=== PATIENT | male | born 1950 | race Hispanic/Latino ===

== ENCOUNTER 2017-12-29 10:37 | Inpatient (IN) | payer MEDICARE ==
[~2017-12-29] VITALS: Ht 177.8 cm; Wt 80.8 kg
[~2017-12-29 10:37] MED LIST: AMLO10TA2 PO; ASPI-1005 PO; CARV25TA PO; FAMO20TA8 PO; FOLI1CAP2 PO; ISOS10TA2 PO; LISI-613 PO; SEVE800 PO
[2017-12-29 11:05] LABS: BASOPHILS % (AUTO) 0.5 % (0.0-5.0); EOSINOPHILS % (AUTO) 0.3 % (0.0-8.0); HEMATOCRIT 33.6 % (42-54); LYMPHOCYTES % (AUTO) 8.5 % (21.0-51.0); MEAN CORPUSCULAR HGB CONC 33.4 g/dL (32.0-36.0); MEAN CORPUSCULAR VOLUME 92.7 fL (79-99); MONOCYTES % (AUTO) 12.4 % (3.0-13.0); NEUTROPHILS % (AUTO) 78.3 % (40.0-77.0); PLATELET COUNT (AUTO) 209 K/uL (130-400); RED BLOOD CELL COUNT(AUTO) 3.62 MIL/uL (4.50-6.20); RED CELL DISTRIBUTION WIDTH 13.2 % (11.0-15.5); WHITE BLOOD COUNT (AUTO) 11.4 K/uL (4.8-10.8)
[2017-12-29 11:14] LABS: CREATININE 3.9 mg/dL (0.5-1.5); POTASSIUM 4.7 mmol/L (3.5-5.1)
[2017-12-29 11:19] LABS: ALBUMIN 2.7 g/dL (3.5-5.0); BILIRUBIN,TOTAL 0.5 mg/dL (0.2-1.0)
[2017-12-29] MEDS ORDERED: MEROPENEM 1 GM VIAL ONE (13:01)
[2017-12-29] MEDS ORDERED: INSULIN HUMULIN R 100 UNIT/ML 3ML ONE (13:02)
[2017-12-29] MEDS ORDERED: VANCOMYCIN PROTOCOL PER PHARMACY IV SCH (15:00)
[2017-12-29] MEDS ORDERED: ONDANSETRON HCL 4 MG/2 ML VIAL IVP PRN (15:00)
[2017-12-29] MEDS ORDERED: COMPOUND IV REFRIGERATED 1 EACH IVSOLN MISC PRN (15:00)
[2017-12-29] MEDS ORDERED: DEXTROSE 50%-WATER 50 ML DISP.SYRIN IV PRN (15:00)
[2017-12-29] MEDS ORDERED: GLUCAGON 1MG KIT 1 MG ML IM PRN (15:00)
[2017-12-29 15:49] VITALS: BP 177/86
[2017-12-29] MEDS ORDERED: VANCOMYCIN 1.5 GM in SODIUM CHLORIDE 0.9% 250 ML IV SCH (16:00)
[2017-12-29] MEDS: INSULIN R PO SS1 SQ SCH ×2 (16:30→21:00)
[2017-12-29] MEDS: AMLODIPINE BESYLATE 5 MG TAB PO SCH (16:41)
[2017-12-29] MEDS: MEROPENEM 1 GM VIAL IVP SCH (16:56)
[2017-12-29] MEDS ORDERED: B CO1CAP5 PO (17:21)
[2017-12-29] MEDS: FLU VACC QS2017-18 36MOS UP/PF 60 MCG/0.5 ML ML IM SCH (18:00)
[2017-12-29 20:00] VITALS: BP 168/79
[2017-12-30] VITALS: BP 170/85
[2017-12-30 03:31] LABS: HEMATOCRIT 31.8 % (42-54); MEAN CORPUSCULAR HEMOGLOBIN 30.8 pg (27.0-33.0); MEAN CORPUSCULAR HGB CONC 33.5 g/dL (32.0-36.0); PLATELET COUNT (AUTO) 213 K/uL (130-400); RED BLOOD CELL COUNT(AUTO) 3.46 MIL/uL (4.50-6.20); RED CELL DISTRIBUTION WIDTH 13.1 % (11.0-15.5); WHITE BLOOD COUNT (AUTO) 9.9 K/uL (4.8-10.8)
[2017-12-30 03:53] LABS: HEMOGLOBIN A1C 8.8 % (4.0-6.0)
[2017-12-30 03:57] LABS: ALBUMIN 2.3 g/dL (3.5-5.0); BILIRUBIN,TOTAL 0.6 mg/dL (0.2-1.0); CREATININE 5.1 mg/dL (0.5-1.5); MAGNESIUM 2.1 mg/dL (1.80-2.40); PHOSPHORUS 4.3 mg/dL (2.5-4.9); POTASSIUM 3.9 mmol/L (3.5-5.1); THYROID STIMULATING HORMONE 1.26 uIU/mL (0.36-3.74); TOTAL PROTEIN, SERUM 6.6 g/dL (6.0-8.3)
[2017-12-30 04:00] VITALS: BP 165/82
[2017-12-30] MEDS: MEROPENEM 1 GM VIAL IVP SCH ×2 (05:06→18:00)
[2017-12-30] MEDS: INSULIN R PO SS1 SQ SCH ×4 (06:28→20:22)
[2017-12-30 07:00] VITALS: BP 177/94
[2017-12-30] MEDS: AMLODIPINE BESYLATE 5 MG TAB PO SCH (10:22)
[2017-12-30 11:00] VITALS: BP 162/111
[2017-12-30] MEDS: VANCOMYCIN 1.25 GM in SODIUM CHLORIDE 0.9% 250 ML IV SCH (15:48)
[2017-12-30 16:00] VITALS: BP 147/93
[2017-12-30] MEDS ORDERED: ALBUMIN (HUMAN) 25% 100 ML IV PRN (17:30)
[2017-12-30] MEDS ORDERED: 0.9% SODIUM CHLORIDE 250 ML IV BAG IV PRN (17:30)
[2017-12-30] MEDS ORDERED: HEPARIN SODIUM 5000UNIT/ML 1ML VIAL IJ PRN (17:30)
[2017-12-30] MEDS ORDERED: SODIUM CHLORIDE 0.9% 1000ML 1,000 ML IV PRN (17:30)
[2017-12-30 20:00] VITALS: BP 143/74
[2017-12-30] MEDS: FAMOTIDINE/PF 20 MG/2 ML VIAL IV SCH (20:56)
[2017-12-31] VITALS (7 sets, daily range): BP systolic 126–156; BP diastolic 62–82
[2017-12-31 04:11] LABS: HEMATOCRIT 31.3 % (42-54); MEAN CORPUSCULAR HGB CONC 34.7 g/dL (32.0-36.0); MEAN CORPUSCULAR VOLUME 92.1 fL (79-99); PLATELET COUNT (AUTO) 222 K/uL (130-400); RED BLOOD CELL COUNT(AUTO) 3.39 MIL/uL (4.50-6.20); RED CELL DISTRIBUTION WIDTH 13.2 % (11.0-15.5); WHITE BLOOD COUNT (AUTO) 8.8 K/uL (4.8-10.8)
[2017-12-31 04:19] LABS: POTASSIUM 3.9 mmol/L (3.5-5.1)
[2017-12-31 05:58] LABS: BAND NEUTROPHILS % (MANUAL) 2 % (0-2); EOSINOPHILS % (MANUAL) 4 % (1-6); LYMPHOCYTES % (MANUAL) 14 % (22-44); MAN.DIFF COMMENT-IMPRESSION MANUAL DIFFERENTIAL; MONOCYTES % (MANUAL) 6 % (2-9); REACTIVE LYMPHOCYTES 2 % (0-0); SEGMENTED NEUTROPHILS % 72 % (40-70)
[2017-12-31] MEDS: MEROPENEM 1 GM VIAL IVP SCH ×2 (06:26→20:01)
[2017-12-31] MEDS: INSULIN R PO SS1 SQ SCH ×4 (06:27→21:00)
[2017-12-31] MEDS: FAMOTIDINE/PF 20 MG/2 ML VIAL IV SCH (10:10)
[2017-12-31] MEDS: AMLODIPINE BESYLATE 5 MG TAB PO SCH (10:10)
[2017-12-31] MEDS: ACETAMINOPHEN 325 MG TAB PO PRN (15:02)
[2017-12-31] MEDS: VANCOMYCIN 1.25 GM in SODIUM CHLORIDE 0.9% 250 ML IV SCH (15:39)
[2017-12-31] MEDS: FLU VACC QS2017-18 36MOS UP/PF 60 MCG/0.5 ML ML IM SCH (21:30)
[2018-01-01 03:00] VITALS: BP 145/66
[2018-01-01 04:06] LABS: HEMATOCRIT 29.8 % (42-54); MEAN CORPUSCULAR HEMOGLOBIN 30.9 pg (27.0-33.0); MEAN CORPUSCULAR HGB CONC 33.2 g/dL (32.0-36.0); MEAN CORPUSCULAR VOLUME 92.9 fL (79-99); PLATELET COUNT (AUTO) 221 K/uL (130-400); RED BLOOD CELL COUNT(AUTO) 3.21 MIL/uL (4.50-6.20); RED CELL DISTRIBUTION WIDTH 13.2 % (11.0-15.5); WHITE BLOOD COUNT (AUTO) 11.5 K/uL (4.8-10.8)
[2018-01-01 04:13] LABS: CREATININE 5.4 mg/dL (0.5-1.5); POTASSIUM 4.1 mmol/L (3.5-5.1)
[2018-01-01] MEDS: INSULIN R PO SS1 SQ SCH ×4 (05:47→21:08)
[2018-01-01] MEDS: MEROPENEM 1 GM VIAL IVP SCH ×2 (05:51→18:09)
[2018-01-01 07:46] VITALS: BP 143/78
[2018-01-01] MEDS: AMLODIPINE BESYLATE 5 MG TAB PO SCH (08:41)
[2018-01-01] MEDS: FAMOTIDINE/PF 20 MG/2 ML VIAL IV SCH (08:42)
[2018-01-01 11:59] VITALS: BP 149/82
[2018-01-01] MEDS: VANCOMYCIN 1.25 GM in SODIUM CHLORIDE 0.9% 250 ML IV SCH (15:32)
[2018-01-01 15:50] VITALS: BP 143/72
[2018-01-01] MEDS: FLU VACC QS2017-18 36MOS UP/PF 60 MCG/0.5 ML ML IM SCH (18:08)
[2018-01-01] MEDS: EPOETIN ALFA 3,000 UNIT/ML ML SQ SCH (18:10)
[2018-01-01 19:00] VITALS: BP 140/61
[2018-01-01 23:00] VITALS: BP 131/64
[2018-01-02 03:00] VITALS: BP 147/71
[2018-01-02] MEDS: MEROPENEM 1 GM VIAL IVP SCH ×2 (05:29→17:40)
[2018-01-02] MEDS: INSULIN R PO SS1 SQ SCH ×4 (06:18→20:23)
[2018-01-02 06:51] LABS: HEMATOCRIT 30.2 % (42-54); MEAN CORPUSCULAR HEMOGLOBIN 32.1 pg (27.0-33.0); MEAN CORPUSCULAR HGB CONC 34.5 g/dL (32.0-36.0); PLATELET COUNT (AUTO) 225 K/uL (130-400); RED BLOOD CELL COUNT(AUTO) 3.25 MIL/uL (4.50-6.20); WHITE BLOOD COUNT (AUTO) 10.5 K/uL (4.8-10.8)
[2018-01-02 06:56] LABS: CREATININE 4.3 mg/dL (0.5-1.5); POTASSIUM 3.6 mmol/L (3.5-5.1)
[2018-01-02 07:57] VITALS: BP 148/75
[2018-01-02] MEDS: FAMOTIDINE/PF 20 MG/2 ML VIAL IV SCH (08:28)
[2018-01-02] MEDS: AMLODIPINE BESYLATE 5 MG TAB PO SCH (08:28)
[2018-01-02 11:36] VITALS: BP 158/79
[2018-01-02 15:53] VITALS: BP 141/75
[2018-01-02] MEDS: ACETAMINOPHEN 325 MG TAB PO PRN (15:53)
[2018-01-02] MEDS: VANCOMYCIN 1.25 GM in SODIUM CHLORIDE 0.9% 250 ML IV SCH (15:53)
[2018-01-02 19:00] VITALS: BP 149/69
[2018-01-02 23:00] VITALS: BP 141/83
[2018-01-03 03:00] VITALS: BP 149/71
[2018-01-03] MEDS: MEROPENEM 1 GM VIAL IVP SCH ×2 (05:44→18:10)
[2018-01-03 05:58] LABS: HEMATOCRIT 30.3 % (42-54); MEAN CORPUSCULAR HEMOGLOBIN 31.4 pg (27.0-33.0); MEAN CORPUSCULAR HGB CONC 33.8 g/dL (32.0-36.0); PLATELET COUNT (AUTO) 228 K/uL (130-400); RED BLOOD CELL COUNT(AUTO) 3.26 MIL/uL (4.50-6.20); RED CELL DISTRIBUTION WIDTH 13.1 % (11.0-15.5); WHITE BLOOD COUNT (AUTO) 10.3 K/uL (4.8-10.8)
[2018-01-03 06:06] LABS: CREATININE 5.7 mg/dL (0.5-1.5); POTASSIUM 4.1 mmol/L (3.5-5.1)
[2018-01-03] MEDS: INSULIN R PO SS1 SQ SCH ×4 (06:31→21:00)
[2018-01-03 08:00] VITALS: BP 141/79
[2018-01-03] MEDS: FAMOTIDINE/PF 20 MG/2 ML VIAL IV SCH (08:36)
[2018-01-03] MEDS: AMLODIPINE BESYLATE 5 MG TAB PO SCH (08:36)
[2018-01-03 11:00] VITALS: BP 148/77
[2018-01-03 16:00] VITALS: BP 144/70
[2018-01-03] MEDS: VANCOMYCIN 1.25 GM in SODIUM CHLORIDE 0.9% 250 ML IV SCH (16:49)
[2018-01-03 19:20] VITALS: BP 149/79
[2018-01-03 23:20] VITALS: BP 142/67
[2018-01-04 03:20] VITALS: BP 139/71
[2018-01-04 04:47] LABS: HEMATOCRIT 29.8 % (42-54); MEAN CORPUSCULAR HEMOGLOBIN 31.4 pg (27.0-33.0); MEAN CORPUSCULAR HGB CONC 33.9 g/dL (32.0-36.0); MEAN CORPUSCULAR VOLUME 92.5 fL (79-99); PLATELET COUNT (AUTO) 245 K/uL (130-400); RED BLOOD CELL COUNT(AUTO) 3.22 MIL/uL (4.50-6.20); RED CELL DISTRIBUTION WIDTH 13.1 % (11.0-15.5)
[2018-01-04 04:56] LABS: CREATININE 6.8 mg/dL (0.5-1.5); POTASSIUM 4.1 mmol/L (3.5-5.1)
[2018-01-04] MEDS: INSULIN R PO SS1 SQ SCH ×4 (06:24→21:00)
[2018-01-04] MEDS: MEROPENEM 1 GM VIAL IVP SCH ×2 (06:50→18:00)
[2018-01-04 08:00] VITALS: BP 140/74
[2018-01-04] MEDS: AMLODIPINE BESYLATE 5 MG TAB PO SCH (09:00)
[2018-01-04] MEDS: FAMOTIDINE/PF 20 MG/2 ML VIAL IV SCH (09:01)
[2018-01-04 11:00] VITALS: BP 126/73
[2018-01-04] MEDS ORDERED: INSULIN HUMULIN R 100 UNIT/ML 3ML SQ ONE (12:02)
[2018-01-04] MEDS ORDERED: DiphenhydrAMINE HCL 50 MG/ML VIAL IVP PRN (13:45)
[2018-01-04] MEDS: SODIUM CHLORIDE 0.9% 1000ML 1,000 ML IV SCH ×2 (13:45→23:45)
[2018-01-04 14:18] LABS: HEMATOCRIT 29.8 % (42-54); MEAN CORPUSCULAR HEMOGLOBIN 31.7 pg (27.0-33.0); MEAN CORPUSCULAR HGB CONC 34.4 g/dL (32.0-36.0); MEAN CORPUSCULAR VOLUME 92.2 fL (79-99); PLATELET COUNT (AUTO) 247 K/uL (130-400); RED BLOOD CELL COUNT(AUTO) 3.24 MIL/uL (4.50-6.20); RED CELL DISTRIBUTION WIDTH 13.3 % (11.0-15.5); WHITE BLOOD COUNT (AUTO) 11.1 K/uL (4.8-10.8)
[2018-01-04 14:26] LABS: CREATININE 7.5 mg/dL (0.5-1.5); POTASSIUM 4.3 mmol/L (3.5-5.1)
[2018-01-04 14:29] LABS: INR 1.06 (0.85-1.15); PARTIAL THROMBOPLASTIN TIME 35.7 SEC (26.3-35.5); PROTHROMBIN TIME 11.1 SEC (9.6-11.6)
[2018-01-04 16:00] VITALS: BP 132/82
[2018-01-04] MEDS ORDERED: HEPARIN SODIUM 5000UNIT/ML 1ML VIAL IJ PRN (18:00)
[2018-01-04 19:30] VITALS: BP 134/73
[2018-01-04] MEDS: VANCOMYCIN 1.25 GM in SODIUM CHLORIDE 0.9% 250 ML IV SCH (20:35)
[2018-01-04 23:10] VITALS: BP 157/82
[2018-01-05] VITALS (11 sets, daily range): BP systolic 144–163; BP diastolic 65–86
[2018-01-05] MEDS: EPOETIN ALFA 3,000 UNIT/ML ML SQ SCH (00:49)
[2018-01-05 04:07] LABS: HEMATOCRIT 31.6 % (42-54); MEAN CORPUSCULAR HEMOGLOBIN 31.1 pg (27.0-33.0); MEAN CORPUSCULAR HGB CONC 33.7 g/dL (32.0-36.0); MEAN CORPUSCULAR VOLUME 92.2 fL (79-99); PLATELET COUNT (AUTO) 258 K/uL (130-400); RED BLOOD CELL COUNT(AUTO) 3.43 MIL/uL (4.50-6.20); RED CELL DISTRIBUTION WIDTH 13.3 % (11.0-15.5); WHITE BLOOD COUNT (AUTO) 9.5 K/uL (4.8-10.8)
[2018-01-05 04:13] LABS: INR 1.08 (0.85-1.15); PARTIAL THROMBOPLASTIN TIME 36.2 SEC (26.3-35.5); PROTHROMBIN TIME 11.3 SEC (9.6-11.6)
[2018-01-05 04:15] LABS: CREATININE 4.9 mg/dL (0.5-1.5); PHOSPHORUS 4.5 mg/dL (2.5-4.9); POTASSIUM 3.8 mmol/L (3.5-5.1)
[2018-01-05] MEDS: INSULIN R PO SS1 SQ SCH ×3 (07:30→16:30)
[2018-01-05] MEDS: MEROPENEM 1 GM VIAL IVP SCH ×2 (08:30→18:06)
[2018-01-05] MEDS: FAMOTIDINE/PF 20 MG/2 ML VIAL IV SCH (08:40)
[2018-01-05] MEDS: AMLODIPINE BESYLATE 5 MG TAB PO SCH (08:40)
[2018-01-05] MEDS: SODIUM CHLORIDE 0.9% 1000ML 1,000 ML IV SCH ×2 (09:45→14:53)
[2018-01-05] MEDS ORDERED: NITROGLYCERIN 5 MG/ML 10 ML VIAL IV ONE (11:17)
[2018-01-05] MEDS ORDERED: LIDOCAINE HCL 2% 20ML ONE (11:17)
[2018-01-05] MEDS ORDERED: HEPARIN SODIUM 1000UNIT/ML 10ML VIAL ONE ×2 (11:17→13:35)
[2018-01-05] MEDS ORDERED: ISOVUE-300 100 ML VIAL IV ONE (11:17)
[2018-01-05] MEDS ORDERED: DiphenhydrAMINE HCL 50 MG/ML VIAL ONE (11:43)
[2018-01-05] MEDS ORDERED: MIDAZOLAM HCL 1 MG/ML 2ML VIAL ONE (11:50)
[2018-01-05] MEDS ORDERED: FENTANYL CITRATE PF 50 MCG/1 ML 2ML VIAL ONE (11:51)
[2018-01-05] MEDS ORDERED: TICAGRELOR 90 MG TABLET ONE (13:53)
[2018-01-05] MEDS ORDERED: ASPIRIN 325MG EC TAB 325 MG TABLET.DR PO ONE (13:54)
[2018-01-05] MEDS ORDERED: SODIUM CHLORIDE 0.9% 1000ML 1,000 ML IV SCH (14:02)
[2018-01-05] MEDS: VANCOMYCIN 1.25 GM in SODIUM CHLORIDE 0.9% 250 ML IV SCH (15:23)
[2018-01-05] MEDS ORDERED: TICAGRELOR 90 MG TABLET PO SCH (23:30)
[2018-01-06] MEDS: INSULIN R PO SS1 SQ SCH ×5 (00:02→22:40)
[2018-01-06 03:00] VITALS: BP 149/92
[2018-01-06] MEDS: SODIUM CHLORIDE 0.9% 1000ML 1,000 ML IV SCH ×2 (05:45→07:35)
[2018-01-06] MEDS: MEROPENEM 1 GM VIAL IVP SCH ×2 (06:56→17:48)
[2018-01-06 08:00] VITALS: BP 164/79
[2018-01-06 08:00] LABS: HEMATOCRIT 29.5 % (42-54); MEAN CORPUSCULAR HEMOGLOBIN 31.2 pg (27.0-33.0); MEAN CORPUSCULAR HGB CONC 33.5 g/dL (32.0-36.0); PLATELET COUNT (AUTO) 267 K/uL (130-400); RED BLOOD CELL COUNT(AUTO) 3.18 MIL/uL (4.50-6.20); RED CELL DISTRIBUTION WIDTH 13.2 % (11.0-15.5); WHITE BLOOD COUNT (AUTO) 14.3 K/uL (4.8-10.8)
[2018-01-06 08:11] LABS: CREATININE 6.7 mg/dL (0.5-1.5); POTASSIUM 3.8 mmol/L (3.5-5.1)
[2018-01-06] MEDS: FAMOTIDINE/PF 20 MG/2 ML VIAL IV SCH (11:02)
[2018-01-06] MEDS: AMLODIPINE BESYLATE 5 MG TAB PO SCH (11:02)
[2018-01-06] MEDS: CLOPIDOGREL BISULFATE 75 MG TAB PO SCH (11:02)
[2018-01-06 12:00] VITALS: BP 146/84
[2018-01-06] MEDS: VANCOMYCIN 1.25 GM in SODIUM CHLORIDE 0.9% 250 ML IV SCH (13:11)
[2018-01-06] MEDS ORDERED: HEPARIN SODIUM 5000UNIT/ML 1ML VIAL IJ PRN (14:30)
[2018-01-06] MEDS ORDERED: VANCOMYCIN PROTOCOL PER PHARMACY IV SCH (14:45)
[2018-01-06 16:00] VITALS: BP 139/72
[2018-01-06] MEDS: SEVELAMER HCL 800 MG TABLET PO SCH (17:46)
[2018-01-06 19:20] VITALS: BP 132/60
[2018-01-06] MEDS: ISOSORBIDE DINITRATE 10 MG TABLET PO SCH (22:38)
[2018-01-06] MEDS: TRAMADOL HCL 50 MG TABLET PO PRN (22:39)
[2018-01-06 23:20] VITALS: BP 140/73
[2018-01-07] MEDS: SODIUM CHLORIDE 0.9% 1000ML 1,000 ML IV SCH (01:45)
[2018-01-07 03:40] VITALS: BP 131/72
[2018-01-07] MEDS: INSULIN R PO SS1 SQ SCH ×4 (06:49→23:44)
[2018-01-07] MEDS: MEROPENEM 1 GM VIAL IVP SCH ×2 (07:42→18:42)
[2018-01-07 08:00] VITALS: BP 137/80
[2018-01-07] MEDS: SEVELAMER HCL 800 MG TABLET PO SCH ×3 (09:26→16:24)
[2018-01-07] MEDS: FAMOTIDINE 20MG TAB 20 MG TAB PO SCH (09:26)
[2018-01-07] MEDS: LISINOPRIL 20 MG TABLET PO SCH (09:26)
[2018-01-07] MEDS: AMLODIPINE BESYLATE 5 MG TAB PO SCH (09:27)
[2018-01-07] MEDS: FAMOTIDINE/PF 20 MG/2 ML VIAL IV SCH (09:27)
[2018-01-07] MEDS: FOLIC ACID/VITAMIN B COMP W-C 1 MG CAPSULE PO SCH (09:27)
[2018-01-07] MEDS: CARVEDILOL 25 MG TABLET PO SCH (09:27)
[2018-01-07] MEDS: CLOPIDOGREL BISULFATE 75 MG TAB PO SCH (09:27)
[2018-01-07] MEDS: ISOSORBIDE DINITRATE 10 MG TABLET PO SCH ×2 (09:39→23:42)
[2018-01-07] MEDS: EPOETIN ALFA 3,000 UNIT/ML ML SQ SCH (09:40)
[2018-01-07 12:04] VITALS: BP 124/72
[2018-01-07 16:00] VITALS: BP 124/60
[2018-01-07 19:25] VITALS: BP 116/54
[2018-01-08] VITALS (7 sets, daily range): BP systolic 111–136; BP diastolic 43–68
[2018-01-08 04:26] LABS: HEMATOCRIT 24.7 % (42-54); MEAN CORPUSCULAR HEMOGLOBIN 32.6 pg (27.0-33.0); MEAN CORPUSCULAR HGB CONC 35.1 g/dL (32.0-36.0); MEAN CORPUSCULAR VOLUME 92.9 fL (79-99); PLATELET COUNT (AUTO) 272 K/uL (130-400); RED BLOOD CELL COUNT(AUTO) 2.66 MIL/uL (4.50-6.20); RED CELL DISTRIBUTION WIDTH 13.4 % (11.0-15.5); WHITE BLOOD COUNT (AUTO) 14.1 K/uL (4.8-10.8)
[2018-01-08 04:42] LABS: CREATININE 6.5 mg/dL (0.5-1.5); POTASSIUM 4.3 mmol/L (3.5-5.1)
[2018-01-08] MEDS: MEROPENEM 1 GM VIAL IVP SCH ×2 (05:21→17:33)
[2018-01-08] MEDS: INSULIN R PO SS1 SQ SCH ×4 (05:50→22:32)
[2018-01-08] MEDS: CLOPIDOGREL BISULFATE 75 MG TAB PO SCH (08:54)
[2018-01-08] MEDS: FAMOTIDINE 20MG TAB 20 MG TAB PO SCH (08:54)
[2018-01-08] MEDS: SEVELAMER HCL 800 MG TABLET PO SCH ×3 (08:54→17:31)
[2018-01-08] MEDS: CARVEDILOL 25 MG TABLET PO SCH (08:54)
[2018-01-08] MEDS: FOLIC ACID/VITAMIN B COMP W-C 1 MG CAPSULE PO SCH (08:54)
[2018-01-08] MEDS: AMLODIPINE BESYLATE 5 MG TAB PO SCH (08:54)
[2018-01-08] MEDS: LISINOPRIL 20 MG TABLET PO SCH (08:55)
[2018-01-08] MEDS: ISOSORBIDE DINITRATE 10 MG TABLET PO SCH ×2 (09:16→22:32)
[2018-01-08] MEDS: EPOETIN ALFA 3,000 UNIT/ML ML SQ SCH (13:43)
[2018-01-09 03:57] VITALS: BP 122/56
[2018-01-09] MEDS: INSULIN R PO SS1 SQ SCH ×4 (06:07→23:02)
[2018-01-09] MEDS: MEROPENEM 1 GM VIAL IVP SCH ×2 (06:48→18:10)
[2018-01-09] MEDS: VANCOMYCIN 1.25 GM in SODIUM CHLORIDE 0.9% 250 ML IV NR (07:58)
[2018-01-09 08:00] VITALS: BP 157/57
[2018-01-09] MEDS: FOLIC ACID/VITAMIN B COMP W-C 1 MG CAPSULE PO SCH (09:03)
[2018-01-09] MEDS: CARVEDILOL 25 MG TABLET PO SCH (09:03)
[2018-01-09] MEDS: SEVELAMER HCL 800 MG TABLET PO SCH ×3 (09:03→16:53)
[2018-01-09] MEDS: CLOPIDOGREL BISULFATE 75 MG TAB PO SCH (09:03)
[2018-01-09] MEDS: LISINOPRIL 20 MG TABLET PO SCH (09:03)
[2018-01-09] MEDS: AMLODIPINE BESYLATE 5 MG TAB PO SCH (09:04)
[2018-01-09] MEDS: FAMOTIDINE 20MG TAB 20 MG TAB PO SCH (09:04)
[2018-01-09] MEDS: ISOSORBIDE DINITRATE 10 MG TABLET PO SCH ×2 (09:10→23:01)
[2018-01-09 11:00] VITALS: BP 113/53
[2018-01-09 15:59] VITALS: BP 119/63
[2018-01-09 19:20] VITALS: BP 123/56
[2018-01-09 23:15] VITALS: BP 122/66
[2018-01-09 23:25] LABS: HEMATOCRIT 27.7 % (42-54); MEAN CORPUSCULAR HEMOGLOBIN 30.7 pg (27.0-33.0); MEAN CORPUSCULAR HGB CONC 33.5 g/dL (32.0-36.0); MEAN CORPUSCULAR VOLUME 91.6 fL (79-99); NUCLEATED RED BLOOD CELLS 0.1 % (0.0-0.19); PLATELET COUNT (AUTO) 330 K/uL (130-400); RED BLOOD CELL COUNT(AUTO) 3.03 MIL/uL (4.50-6.20); RED CELL DISTRIBUTION WIDTH 13.8 % (11.0-15.5); WHITE BLOOD COUNT (AUTO) 13.8 K/uL (4.8-10.8)
[2018-01-09 23:32] LABS: CARBON DIOXIDE 27 mmol/L (21-32); CHLORIDE 97 mmol/L (101-111); CREATININE 5.9 mg/dL (0.5-1.5); GLOMERULAR FILTR. RATE CALC 10 mL/min (>60); GLUCOSE,RANDOM 222 mg/dL (70-105); POTASSIUM 4.3 mmol/L (3.5-5.1); SODIUM SERUM 137 mmol/L (136-145); UREA NITROGEN, BLOOD 51 mg/dL (7-18)
[2018-01-09 23:47] LABS: CREATINE KINASE MB 1.2 ng/mL (0.5-3.6); CREATINE KINASE, TOTAL 28 U/L (21-232); MYOGLOBIN 210 ng/mL (10-92); TROPONIN I < 0.04 ng/mL (0.00-0.06)
[2018-01-10 03:30] VITALS: BP 115/50
[2018-01-10 06:07] LABS: CREATININE 6.3 mg/dL (0.5-1.5); PHOSPHORUS 4.3 mg/dL (2.5-4.9); POTASSIUM 4.3 mmol/L (3.5-5.1)
[2018-01-10 06:09] LABS: HEMATOCRIT 26.4 % (42-54); MEAN CORPUSCULAR HEMOGLOBIN 32.2 pg (27.0-33.0); MEAN CORPUSCULAR HGB CONC 34.7 g/dL (32.0-36.0); MEAN CORPUSCULAR VOLUME 92.8 fL (79-99); PLATELET COUNT (AUTO) 331 K/uL (130-400); RED BLOOD CELL COUNT(AUTO) 2.85 MIL/uL (4.50-6.20); RED CELL DISTRIBUTION WIDTH 13.8 % (11.0-15.5); WHITE BLOOD COUNT (AUTO) 12.6 K/uL (4.8-10.8)
[2018-01-10 06:19] LABS: BASOPHILS % (MANUAL) 1 % (0-2); EOSINOPHILS % (MANUAL) 2 % (1-6); LYMPHOCYTES % (MANUAL) 20 % (22-44); MAN.DIFF COMMENT-IMPRESSION MANUAL DIFFERENTIAL; MONOCYTES % (MANUAL) 13 % (2-9); SEGMENTED NEUTROPHILS % 64 % (40-70)
[2018-01-10 06:20] LABS: PLATELET MORPHOLOGY COMMENT ADEQUATE
[2018-01-10] MEDS: INSULIN R PO SS1 SQ SCH ×4 (06:22→23:41)
[2018-01-10 07:58] VITALS: BP 130/58
[2018-01-10] MEDS: SEVELAMER HCL 800 MG TABLET PO SCH ×3 (08:00→18:32)
[2018-01-10] MEDS: MEROPENEM 1 GM VIAL IVP SCH ×2 (08:38→18:32)
[2018-01-10] MEDS: FOLIC ACID/VITAMIN B COMP W-C 1 MG CAPSULE PO SCH (12:13)
[2018-01-10] MEDS: FAMOTIDINE 20MG TAB 20 MG TAB PO SCH (12:14)
[2018-01-10] MEDS: LISINOPRIL 20 MG TABLET PO SCH (12:14)
[2018-01-10] MEDS: CARVEDILOL 25 MG TABLET PO SCH (12:15)
[2018-01-10] MEDS: ISOSORBIDE DINITRATE 10 MG TABLET PO SCH ×2 (12:15→23:40)
[2018-01-10 13:56] VITALS: BP 121/58
[2018-01-10] MEDS: VANCOMYCIN 1.25 GM in SODIUM CHLORIDE 0.9% 250 ML IV NR (15:49)
[2018-01-10 16:00] VITALS: BP 120/58
[2018-01-10] MEDS: AMLODIPINE BESYLATE 5 MG TAB PO SCH (18:32)
[2018-01-10 20:00] VITALS: BP 127/57
[2018-01-11 04:00] VITALS: BP 113/52
[2018-01-11] MEDS: INSULIN R PO SS1 SQ SCH ×4 (06:14→22:58)
[2018-01-11] MEDS: MEROPENEM 1 GM VIAL IVP SCH ×2 (07:10→17:23)
[2018-01-11 08:00] VITALS: BP 103/40
[2018-01-11] MEDS: SEVELAMER HCL 800 MG TABLET PO SCH ×3 (08:00→17:22)
[2018-01-11] MEDS: ISOSORBIDE DINITRATE 10 MG TABLET PO SCH ×2 (09:00→22:56)
[2018-01-11] MEDS: CARVEDILOL 25 MG TABLET PO SCH (09:00)
[2018-01-11] MEDS: LISINOPRIL 20 MG TABLET PO SCH (09:00)
[2018-01-11] MEDS: AMLODIPINE BESYLATE 5 MG TAB PO SCH (09:00)
[2018-01-11] MEDS: FAMOTIDINE 20MG TAB 20 MG TAB PO SCH (11:32)
[2018-01-11] MEDS: FOLIC ACID/VITAMIN B COMP W-C 1 MG CAPSULE PO SCH (11:32)
[2018-01-11 11:53] VITALS: BP 109/40
[2018-01-11 15:57] VITALS: BP 141/67
[2018-01-11 23:39] VITALS: BP 149/58
[2018-01-12 03:55] VITALS: BP 131/55
[2018-01-12] MEDS: INSULIN R PO SS1 SQ SCH ×4 (06:27→22:33)
[2018-01-12] MEDS: MEROPENEM 1 GM VIAL IVP SCH (06:46)
[2018-01-12 07:00] VITALS: BP 152/68
[2018-01-12] MEDS: CARVEDILOL 25 MG TABLET PO SCH (09:03)
[2018-01-12] MEDS: SEVELAMER HCL 800 MG TABLET PO SCH ×3 (09:03→18:12)
[2018-01-12] MEDS: FAMOTIDINE 20MG TAB 20 MG TAB PO SCH (09:03)
[2018-01-12] MEDS: LISINOPRIL 20 MG TABLET PO SCH (09:03)
[2018-01-12] MEDS: FOLIC ACID/VITAMIN B COMP W-C 1 MG CAPSULE PO SCH (09:04)
[2018-01-12] MEDS: AMLODIPINE BESYLATE 5 MG TAB PO SCH (09:04)
[2018-01-12] MEDS: ISOSORBIDE DINITRATE 10 MG TABLET PO SCH ×2 (09:04→22:31)
[2018-01-12 11:26] VITALS: BP 130/58
[2018-01-12 16:00] VITALS: BP 111/45
[2018-01-12 19:00] VITALS: BP 116/48
[2018-01-13] VITALS (7 sets, daily range): BP systolic 124–146; BP diastolic 54–72
[2018-01-13] MEDS: INSULIN R PO SS1 SQ SCH ×4 (06:08→20:25)
[2018-01-13] MEDS: SEVELAMER HCL 800 MG TABLET PO SCH ×3 (08:00→20:22)
[2018-01-13] MEDS: FOLIC ACID/VITAMIN B COMP W-C 1 MG CAPSULE PO SCH (11:46)
[2018-01-13] MEDS: FAMOTIDINE 20MG TAB 20 MG TAB PO SCH (11:47)
[2018-01-13] MEDS: CARVEDILOL 25 MG TABLET PO SCH (11:47)
[2018-01-13] MEDS: AMLODIPINE BESYLATE 5 MG TAB PO SCH (11:47)
[2018-01-13] MEDS: ISOSORBIDE DINITRATE 10 MG TABLET PO SCH ×2 (11:47→20:22)
[2018-01-13] MEDS: LISINOPRIL 20 MG TABLET PO SCH (11:48)
[2018-01-14] VITALS (33 sets, daily range): BP systolic 109–163; BP diastolic 43–68
[2018-01-14 06:52] LABS: BASOPHILS % (AUTO) 0.9 % (0.0-5.0); EOSINOPHILS % (AUTO) 3.6 % (0.0-8.0); HEMATOCRIT 27.5 % (42-54); LYMPHOCYTES % (AUTO) 11.1 % (21.0-51.0); MEAN CORPUSCULAR HEMOGLOBIN 30.7 pg (27.0-33.0); MONOCYTES % (AUTO) 13.5 % (3.0-13.0); NEUTROPHILS % (AUTO) 70.9 % (40.0-77.0); PLATELET COUNT (AUTO) 324 K/uL (130-400); RED BLOOD CELL COUNT(AUTO) 2.96 MIL/uL (4.50-6.20); RED CELL DISTRIBUTION WIDTH 13.7 % (11.0-15.5); WHITE BLOOD COUNT (AUTO) 11.3 K/uL (4.8-10.8)
[2018-01-14 07:01] LABS: POTASSIUM 4.9 mmol/L (3.5-5.1)
[2018-01-14] MEDS: INSULIN R PO SS1 SQ SCH ×4 (07:30→21:00)
[2018-01-14] MEDS: SEVELAMER HCL 800 MG TABLET PO SCH ×3 (08:00→17:00)
[2018-01-14] MEDS: FOLIC ACID/VITAMIN B COMP W-C 1 MG CAPSULE PO SCH (08:17)
[2018-01-14] MEDS: FAMOTIDINE 20MG TAB 20 MG TAB PO SCH (08:20)
[2018-01-14] MEDS: CARVEDILOL 25 MG TABLET PO SCH (08:21)
[2018-01-14] MEDS: AMLODIPINE BESYLATE 5 MG TAB PO SCH (08:32)
[2018-01-14] MEDS: ISOSORBIDE DINITRATE 10 MG TABLET PO SCH ×2 (08:33→21:05)
[2018-01-14] MEDS: LISINOPRIL 20 MG TABLET PO SCH (09:00)
[2018-01-14] MEDS ORDERED: FENTANYL CITRATE PF 50 MCG/1 ML 2ML VIAL ONE ×2 (12:24→13:54)
[2018-01-14] MEDS ORDERED: PROPOFOL 10 MG/ML 20ML VIAL IV ONE (12:24)
[2018-01-14] MEDS ORDERED: ROCURONIUM BROMIDE 10MG/1ML 5ML VL ONE (12:25)
[2018-01-14] MEDS ORDERED: LIDOCAINE PF 2% 5ML ABBOJECT ONE (12:25)
[2018-01-14] MEDS ORDERED: ESMOLOL HCL 10 MG/ML 10 ML VIAL ONE (13:46)
[2018-01-14] MEDS ORDERED: GLYCOPYRROLATE 0.2 MG/ML 5 ML VIAL ONE (13:47)
[2018-01-14] MEDS: SODIUM CHLORIDE 0.9% 1000ML 1,000 ML IV SCH (13:58)
[2018-01-14] MEDS ORDERED: MORPHINE SULFATE 4 MG/1ML SYG IV PRN (14:00)
[2018-01-14] MEDS ORDERED: MORPHINE SULFATE 2 MG/ML 1ML SYG IV PRN (14:00)
[2018-01-14] MEDS ORDERED: MEPERIDINE-PF 25 MG/ML SYG ONE (14:28)
[2018-01-15 03:00] VITALS: BP 131/50
[2018-01-15 05:59] LABS: HEMATOCRIT 26.4 % (42-54); MEAN CORPUSCULAR HEMOGLOBIN 31.2 pg (27.0-33.0); MEAN CORPUSCULAR HGB CONC 33.3 g/dL (32.0-36.0); MEAN CORPUSCULAR VOLUME 93.7 fL (79-99); PLATELET COUNT (AUTO) 295 K/uL (130-400); RED BLOOD CELL COUNT(AUTO) 2.82 MIL/uL (4.50-6.20); RED CELL DISTRIBUTION WIDTH 13.8 % (11.0-15.5); WHITE BLOOD COUNT (AUTO) 10.4 K/uL (4.8-10.8)
[2018-01-15 06:21] LABS: CREATININE 6.1 mg/dL (0.5-1.5); PHOSPHORUS 5.2 mg/dL (2.5-4.9); POTASSIUM 5.9 mmol/L (3.5-5.1)
[2018-01-15 06:33] LABS: BASOPHILS % (MANUAL) 2 % (0-2); EOSINOPHILS % (MANUAL) 4 % (1-6); LYMPHOCYTES % (MANUAL) 7 % (22-44); MAN.DIFF COMMENT-IMPRESSION MANUAL DIFFERENTIAL; MONOCYTES % (MANUAL) 10 % (2-9); REACTIVE LYMPHOCYTES 1 % (0-0); SEGMENTED NEUTROPHILS % 76 % (40-70)
[2018-01-15 06:34] LABS: PLATELET MORPHOLOGY COMMENT ADEQUATE
[2018-01-15] MEDS: INSULIN R PO SS1 SQ SCH ×4 (07:30→20:44)
[2018-01-15 08:00] VITALS: BP 151/79
[2018-01-15] MEDS: ISOSORBIDE DINITRATE 10 MG TABLET PO SCH ×2 (09:41→20:44)
[2018-01-15] MEDS: CARVEDILOL 25 MG TABLET PO SCH (09:42)
[2018-01-15] MEDS: SEVELAMER HCL 800 MG TABLET PO SCH ×3 (09:42→17:03)
[2018-01-15] MEDS: FAMOTIDINE 20MG TAB 20 MG TAB PO SCH (09:42)
[2018-01-15] MEDS: FOLIC ACID/VITAMIN B COMP W-C 1 MG CAPSULE PO SCH (09:42)
[2018-01-15] MEDS: AMLODIPINE BESYLATE 5 MG TAB PO SCH (09:42)
[2018-01-15] MEDS: LISINOPRIL 20 MG TABLET PO SCH (09:43)
[2018-01-15] MEDS: SODIUM CHLORIDE 0.9% 1000ML 1,000 ML IV SCH (09:58)
[2018-01-15 12:00] VITALS: BP 148/73
[2018-01-15] MEDS: TRAMADOL HCL 50 MG TABLET PO PRN (14:08)
[2018-01-15] MEDS: VANCOMYCIN 1.25 GM in SODIUM CHLORIDE 0.9% 250 ML IV NR (15:24)
[2018-01-15 16:00] VITALS: BP 98/56
[2018-01-15 19:00] VITALS: BP 119/59
[2018-01-15 23:00] VITALS: BP 119/55
[2018-01-16 03:00] VITALS: BP 115/42
[2018-01-16] MEDS: SODIUM CHLORIDE 0.9% 1000ML 1,000 ML IV SCH (05:58)
[2018-01-16] MEDS: INSULIN R PO SS1 SQ SCH ×4 (06:37→21:38)
[2018-01-16 08:00] VITALS: BP 121/56
[2018-01-16 11:00] VITALS: BP 126/47
[2018-01-16] MEDS: AMLODIPINE BESYLATE 5 MG TAB PO SCH (11:53)
[2018-01-16] MEDS: SEVELAMER HCL 800 MG TABLET PO SCH ×3 (11:53→17:05)
[2018-01-16] MEDS: ISOSORBIDE DINITRATE 10 MG TABLET PO SCH ×2 (11:53→21:34)
[2018-01-16] MEDS: CARVEDILOL 25 MG TABLET PO SCH (11:54)
[2018-01-16] MEDS: FOLIC ACID/VITAMIN B COMP W-C 1 MG CAPSULE PO SCH (11:54)
[2018-01-16] MEDS: FAMOTIDINE 20MG TAB 20 MG TAB PO SCH (11:58)
[2018-01-16] MEDS: LISINOPRIL 20 MG TABLET PO SCH (11:58)
[2018-01-16] MEDS: VANCOMYCIN 1.25 GM in SODIUM CHLORIDE 0.9% 250 ML IV NR (15:33)
[2018-01-16 16:00] VITALS: BP 123/53
[2018-01-16] MEDS ORDERED: ATROPINE SULFATE 0.1 MG/ML 10 ML SYG IVP SCH (18:15)
[2018-01-16 19:00] VITALS: BP 116/51
[2018-01-16 23:00] VITALS: BP 118/52
[2018-01-17 03:00] VITALS: BP 127/51
[2018-01-17] MEDS: INSULIN R PO SS1 SQ SCH ×4 (06:03→21:00)
[2018-01-17 06:10] LABS: HEMATOCRIT 22.5 % (42-54); MEAN CORPUSCULAR HEMOGLOBIN 31.4 pg (27.0-33.0); MEAN CORPUSCULAR HGB CONC 34.2 g/dL (32.0-36.0); MEAN CORPUSCULAR VOLUME 91.6 fL (79-99); PLATELET COUNT (AUTO) 251 K/uL (130-400); RED BLOOD CELL COUNT(AUTO) 2.45 MIL/uL (4.50-6.20); RED CELL DISTRIBUTION WIDTH 13.6 % (11.0-15.5); WHITE BLOOD COUNT (AUTO) 13.2 K/uL (4.8-10.8)
[2018-01-17 06:22] LABS: INR 1.11 (0.85-1.15); PARTIAL THROMBOPLASTIN TIME 38.3 SEC (26.3-35.5); PROTHROMBIN TIME 11.6 SEC (9.6-11.6)
[2018-01-17 06:33] LABS: BILIRUBIN,DIRECT 0.2 mg/dL (0.0-0.3); BILIRUBIN,TOTAL 0.5 mg/dL (0.2-1.0); CREATININE 6.9 mg/dL (0.5-1.5); POTASSIUM 4.4 mmol/L (3.5-5.1); THYROID STIMULATING HORMONE 2.38 uIU/mL (0.36-3.74); TOTAL PROTEIN, SERUM 6.5 g/dL (6.0-8.3)
[2018-01-17 08:00] VITALS: BP 116/55
[2018-01-17] MEDS: CLOPIDOGREL BISULFATE 75 MG TAB PO SCH (08:53)
[2018-01-17] MEDS: FAMOTIDINE 20MG TAB 20 MG TAB PO SCH (08:53)
[2018-01-17] MEDS: FOLIC ACID/VITAMIN B COMP W-C 1 MG CAPSULE PO SCH (08:53)
[2018-01-17] MEDS: SEVELAMER HCL 800 MG TABLET PO SCH ×3 (08:53→16:33)
[2018-01-17] MEDS: ISOSORBIDE DINITRATE 10 MG TABLET PO SCH ×2 (08:53→21:00)
[2018-01-17] MEDS: AMLODIPINE BESYLATE 5 MG TAB PO SCH (08:54)
[2018-01-17] MEDS: LISINOPRIL 20 MG TABLET PO SCH (08:54)
[2018-01-17] MEDS ORDERED: CLOPIDOGREL BISULFATE 75 MG TAB PO SCH ×2 (09:00)
[2018-01-17 11:00] VITALS: BP 124/53
[2018-01-17 16:00] VITALS: BP 131/56
[2018-01-17] MEDS: VANCOMYCIN 1.25 GM in SODIUM CHLORIDE 0.9% 250 ML IV NR (16:31)
[2018-01-17 19:40] VITALS: BP 116/56
[2018-01-17 23:20] VITALS: BP 119/52
[2018-01-18 03:25] VITALS: BP 131/52
[2018-01-18 04:40] LABS: HEMATOCRIT 23.7 % (42-54); MEAN CORPUSCULAR HEMOGLOBIN 30.8 pg (27.0-33.0); MEAN CORPUSCULAR VOLUME 90.9 fL (79-99); PLATELET COUNT (AUTO) 272 K/uL (130-400); RED BLOOD CELL COUNT(AUTO) 2.61 MIL/uL (4.50-6.20); RED CELL DISTRIBUTION WIDTH 13.6 % (11.0-15.5); WHITE BLOOD COUNT (AUTO) 13.3 K/uL (4.8-10.8)
[2018-01-18 04:54] LABS: BAND NEUTROPHILS % (MANUAL) 5 % (0-2); BASOPHILS % (MANUAL) 2 % (0-2); LYMPHOCYTES % (MANUAL) 18 % (22-44); MAN.DIFF COMMENT-IMPRESSION MANUAL DIFFERENTIAL; MONOCYTES % (MANUAL) 1 % (2-9); PHOSPHORUS 6.7 mg/dL (2.5-4.9); PLATELET MORPHOLOGY COMMENT ADEQUATE; POTASSIUM 4.6 mmol/L (3.5-5.1); SEGMENTED NEUTROPHILS % 74 % (40-70)
[2018-01-18 05:11] LABS: CREATININE 8.2 mg/dL (0.5-1.5)
[2018-01-18] MEDS: INSULIN R PO SS1 SQ SCH ×4 (06:09→20:38)
[2018-01-18 08:00] VITALS: BP 133/57
[2018-01-18] MEDS: SEVELAMER HCL 800 MG TABLET PO SCH ×3 (08:00→17:22)
[2018-01-18] MEDS: ISOSORBIDE DINITRATE 10 MG TABLET PO SCH ×2 (09:00→20:40)
[2018-01-18] MEDS: AMLODIPINE BESYLATE 5 MG TAB PO SCH ×2 (09:00→17:22)
[2018-01-18] MEDS: LISINOPRIL 20 MG TABLET PO SCH (09:00)
[2018-01-18] MEDS: CARVEDILOL 12.5 MG TABLET PO SCH ×2 (10:00→17:22)
[2018-01-18 11:00] VITALS: BP 127/49
[2018-01-18] MEDS: TRAMADOL HCL 50 MG TABLET PO PRN (12:35)
[2018-01-18] MEDS: CLOPIDOGREL BISULFATE 75 MG TAB PO SCH (12:38)
[2018-01-18] MEDS: FAMOTIDINE 20MG TAB 20 MG TAB PO SCH (12:38)
[2018-01-18] MEDS: FOLIC ACID/VITAMIN B COMP W-C 1 MG CAPSULE PO SCH (12:38)
[2018-01-18 16:00] VITALS: BP 159/70
[2018-01-18] MEDS: VANCOMYCIN 1.25 GM in SODIUM CHLORIDE 0.9% 250 ML IV NR (17:22)
[2018-01-18 19:20] VITALS: BP 145/62
[2018-01-18 23:07] VITALS: BP 139/64
[2018-01-19 03:10] VITALS: BP 123/49
[2018-01-19 04:01] LABS: HEMATOCRIT 24.8 % (42-54); MEAN CORPUSCULAR HEMOGLOBIN 31.5 pg (27.0-33.0); MEAN CORPUSCULAR HGB CONC 35.1 g/dL (32.0-36.0); MEAN CORPUSCULAR VOLUME 89.5 fL (79-99); PLATELET COUNT (AUTO) 285 K/uL (130-400); RED BLOOD CELL COUNT(AUTO) 2.77 MIL/uL (4.50-6.20); RED CELL DISTRIBUTION WIDTH 13.5 % (11.0-15.5); WHITE BLOOD COUNT (AUTO) 9.9 K/uL (4.8-10.8)
[2018-01-19 04:14] LABS: CREATININE 5.1 mg/dL (0.5-1.5); POTASSIUM 4.1 mmol/L (3.5-5.1)
[2018-01-19] MEDS: INSULIN R PO SS1 SQ SCH ×3 (05:53→16:38)
[2018-01-19 08:00] VITALS: BP 132/66
[2018-01-19] MEDS: CLOPIDOGREL BISULFATE 75 MG TAB PO SCH (09:34)
[2018-01-19] MEDS: AMLODIPINE BESYLATE 5 MG TAB PO SCH (09:34)
[2018-01-19] MEDS: ISOSORBIDE DINITRATE 10 MG TABLET PO SCH (09:34)
[2018-01-19] MEDS: FAMOTIDINE 20MG TAB 20 MG TAB PO SCH (09:34)
[2018-01-19] MEDS: LISINOPRIL 20 MG TABLET PO SCH (09:34)
[2018-01-19] MEDS: FOLIC ACID/VITAMIN B COMP W-C 1 MG CAPSULE PO SCH (09:34)
[2018-01-19] MEDS: SEVELAMER HCL 800 MG TABLET PO SCH ×3 (09:34→16:36)
[2018-01-19] MEDS: CARVEDILOL 12.5 MG TABLET PO SCH (09:38)
[2018-01-19] MEDS: VANCOMYCIN 1.25 GM in SODIUM CHLORIDE 0.9% 250 ML IV NR (09:39)
[2018-01-19 11:00] VITALS: BP 127/64
[2018-01-19 16:00] VITALS: BP 158/76
== END 2018-01-19 19:51 | DRG 853 ==
LOC: EDH 10:37 → EDHIP 11:25 → 3BH 15:32
PROVIDERS: ADMIT Internal Medicine Nephrology; ATTEND Internal Medicine Nephrology
PROC: 5A1D70Z Performance of Urinary Filtration, Intermittent, Less than 6 Hours Per Day (ICD-10-PCS; 2017-12-30)
PROC: 3E0234Z Introduction of Serum, Toxoid and Vaccine into Muscle, Percutaneous Approach (ICD-10-PCS; 2017-12-31)
PROC: 5A1D70Z Performance of Urinary Filtration, Intermittent, Less than 6 Hours Per Day (ICD-10-PCS; 2018-01-01)
PROC: 5A1D70Z Performance of Urinary Filtration, Intermittent, Less than 6 Hours Per Day (ICD-10-PCS; 2018-01-04)
PROC: B41D1ZZ Fluoroscopy of Aorta and Bilateral Lower Extremity Arteries using Low Osmolar Contrast (ICD-10-PCS; principal; 2018-01-05)
PROC: 04CN3ZZ Extirpation of Matter from Left Popliteal Artery, Percutaneous Approach (ICD-10-PCS; 2018-01-05)
PROC: B41G1ZZ Fluoroscopy of Left Lower Extremity Arteries using Low Osmolar Contrast (ICD-10-PCS; 2018-01-05)
PROC: 047L3DZ Dilation of Left Femoral Artery with Intraluminal Device, Percutaneous Approach (ICD-10-PCS; 2018-01-05)
PROC: 04CU3ZZ Extirpation of Matter from Left Peroneal Artery, Percutaneous Approach (ICD-10-PCS; 2018-01-05)
PROC: 04CS3ZZ Extirpation of Matter from Left Posterior Tibial Artery, Percutaneous Approach (ICD-10-PCS; 2018-01-05)
PROC: 5A1D70Z Performance of Urinary Filtration, Intermittent, Less than 6 Hours Per Day (ICD-10-PCS; 2018-01-06)
PROC: 5A1D70Z Performance of Urinary Filtration, Intermittent, Less than 6 Hours Per Day (ICD-10-PCS; 2018-01-08)
PROC: 5A1D70Z Performance of Urinary Filtration, Intermittent, Less than 6 Hours Per Day (ICD-10-PCS; 2018-01-11)
PROC: 5A1D70Z Performance of Urinary Filtration, Intermittent, Less than 6 Hours Per Day (ICD-10-PCS; 2018-01-13)
PROC: 0Y6J0Z3 Detachment at Left Lower Leg, Low, Open Approach (ICD-10-PCS; 2018-01-14)
PROC: 5A1D70Z Performance of Urinary Filtration, Intermittent, Less than 6 Hours Per Day (ICD-10-PCS; 2018-01-15)
PROC: 5A1D70Z Performance of Urinary Filtration, Intermittent, Less than 6 Hours Per Day (ICD-10-PCS; 2018-01-17)
PROC: 5A1D70Z Performance of Urinary Filtration, Intermittent, Less than 6 Hours Per Day (ICD-10-PCS; 2018-01-18)
DX: A41.9 Sepsis, unspecified organism (principal); N18.6 End stage renal disease; E11.52 Type 2 diabetes mellitus with diabetic peripheral angiopathy with gangrene; E11.21 Type 2 diabetes mellitus with diabetic nephropathy; E11.22 Type 2 diabetes mellitus with diabetic chronic kidney disease; I44.1 Atrioventricular block, second degree; M86.8X8 Other osteomyelitis, other site; L97.429 Non-pressure chronic ulcer of left heel and midfoot with unspecified severity; M86.8X7 Other osteomyelitis, ankle and foot; I12.0 Hypertensive chronic kidney disease with stage 5 chronic kidney disease or end stage renal disease; E11.621 Type 2 diabetes mellitus with foot ulcer; E11.69 Type 2 diabetes mellitus with other specified complication; D64.9 Anemia, unspecified; E78.5 Hyperlipidemia, unspecified; L97.519 Non-pressure chronic ulcer of other part of right foot with unspecified severity; Z83.3 Family history of diabetes mellitus; Z99.2 Dependence on renal dialysis; Z23 Encounter for immunization
CPT/HCPCS: 36415; 37227; 37228; 73630; 73718; 75710; 75774; 80048; 80053; 80076; 80202; 82550; 82553; 82947; 82948; 83036; 83605; 83735; 83874; 84100; 84443; 84484; 85025; 85027; 85347; 85610; 85730; 87040; 87205; 87324; 88307; 90935; 93005; 93306; 93925; 97039; 99152; 99153; A4218; C1725; C1760; C1769; C1884; C1893; C1894; G0008; J0461; J1200; J1644; J1815; J2001; J2175; J2185; J2250; J2704; J3010; J3370; J3490; J7030; J7070; Q2038; Q9967

== ENCOUNTER 2020-01-09 12:00 | Inpatient (IN) | payer MEDICARE ==
[~2020-01-09] VITALS: Ht 167.6 cm; Wt 66.1 kg
--- NOTE | 2020-01-09 09:00 | NUR ---
FROM [facility]- BACK TO [facility] ADVISED BY SRIRAM THAT PATIENT IS ON LEAVE FROM [facility] AND WILL BE RETURNING TO [facility] AFTER SURGERY. WILL DEFER DETAILED CN ASSESSMENT AT THIS TIME AND WILL ASK SW TO GET [place] FOR SOLARA Addendum: 01/11/20 at 1609 by ORTIZ ARMANDO RN CM Amended: Links added.
[~2020-01-09 12:00] MED LIST changes: -AMLO10TA2 PO; +AMLO5TAB9 PO; -ASPI-1005 PO; +B CO1CAP5 PO; -CARV25TA PO; -FOLI1CAP2 PO; +METF500S7 PO; +SUCR500T PO
[2020-01-09 16:00] VITALS: BP 116/41
[2020-01-09] MEDS ORDERED: VANC1PLA9 IV (16:40)
[2020-01-09] MEDS ORDERED: DARB100D IVP (16:40)
[2020-01-09] MEDS ORDERED: DAKINS.5S TP (16:40)
[2020-01-09] MEDS ORDERED: LOPE2CAP PO (16:40)
[2020-01-09] MEDS ORDERED: CLOT15C TP (17:01)
[2020-01-09] MEDS ORDERED: NYST100P2 TP ×2 (17:01)
[2020-01-09] MEDS ORDERED: MINE60OI TP (17:04)
[2020-01-09] MEDS ORDERED: BALS60OI TP (17:07)
[2020-01-09] MEDS ORDERED: DEXTROSE 50%-WATER 50 ML DISP.SYRIN IV PRN (17:15)
[2020-01-09] MEDS ORDERED: GLUCAGON 1MG KIT 1 MG ML IM PRN (17:15)
[2020-01-09] MEDS ORDERED: [UNRECOGNIZED DRUG - CODE] IJ (17:29)
[2020-01-09] MEDS ORDERED: NS1000 IV (17:29)
[2020-01-09] MEDS ORDERED: SUCR500T PO (17:29)
[2020-01-09 17:33] LABS: HEMATOCRIT 23.8 % (42-54); MEAN CORPUSCULAR HEMOGLOBIN 30.5 pg (27.0-33.0); MEAN CORPUSCULAR HGB CONC 31.5 g/dL (32.0-36.0); MEAN CORPUSCULAR VOLUME 96.7 fL (79-99); PLATELET COUNT (AUTO) 401 K/uL (130-400); RED BLOOD CELL COUNT(AUTO) 2.46 MIL/uL (4.50-6.20); RED CELL DISTRIBUTION WIDTH 14.9 % (11.0-15.5); WHITE BLOOD COUNT (AUTO) 20.2 K/uL (4.8-10.8)
[2020-01-09] MEDS ORDERED: ALBU50IV5 IV (17:34)
[2020-01-09] MEDS ORDERED: NITR0.4T SL (17:34)
[2020-01-09] MEDS ORDERED: VIT E PO (17:39)
[2020-01-09] MEDS ORDERED: POLY17PO4 PO (17:40)
[2020-01-09] MEDS ORDERED: [UNRECOGNIZED DRUG - CODE] SQ (17:42)
[2020-01-09 17:44] LABS: CREATININE 4.2 mg/dL (0.5-1.5); POTASSIUM 4.4 mmol/L (3.5-5.1)
[2020-01-09] MEDS ORDERED: GABA-529 PO (17:44)
[2020-01-09] MEDS ORDERED: ACET-66 PO (17:47)
[2020-01-09] MEDS ORDERED: SEVE800T7 PO (17:47)
[2020-01-09] MEDS ORDERED: FOLI1TAB61 PO (17:52)
[2020-01-09] MEDS ORDERED: INSU100V3 SQ (18:00)
[2020-01-09 18:12] LABS: INR 1.22 (0.85-1.15); PROTHROMBIN TIME 12.7 SEC (9.6-11.6)
[2020-01-09] MEDS ORDERED: NYSTATIN APPL TP PRN (18:15)
[2020-01-09] MEDS ORDERED: HEPARIN SODIUM PORCINE IJ SCH (18:15)
[2020-01-09] MEDS ORDERED: LOPERAMIDE HCL 2 MG CAP PO SCH (18:15)
[2020-01-09] MEDS ORDERED: SODIUM CHLORIDE IV PRN (18:15)
[2020-01-09] MEDS ORDERED: [UNRECOGNIZED DRUG - OTHER] IJ SCH (18:15)
[2020-01-09] MEDS ORDERED: ALBUMIN (HUMAN) 25% 50 ML IV.SOLN. IV PRN (18:15)
[2020-01-09] MEDS: ACETAMINOPHEN EXTRA STRENGTH 500 MG TABLET PO SCH (18:15)
[2020-01-09] MEDS ORDERED: NITROGLYCERIN 0.4 MG SL TAB SL SCH (18:15)
[2020-01-09] MEDS: PHARMACY COMMUNICATION MISC SCH (19:00)
[2020-01-09] MEDS ORDERED: HEPARIN SODIUM 5000UNIT/ML 1ML VIAL IJ PRN (19:15)
[2020-01-09] MEDS ORDERED: SODIUM CHLORIDE 0.9% 1000ML 1,000 ML IV PRN (19:15)
[2020-01-09] MEDS ORDERED: 0.9% SODIUM CHLORIDE 1000 ML IV BAG IV PRN (19:15)
[2020-01-09 20:00] VITALS: BP 129/49
[2020-01-09] MEDS: INSULIN HUMULIN R 100 UNIT/ML 3ML SQ SCH (20:27)
[2020-01-09] MEDS ORDERED: NYSTATIN APPL TP SCH (21:00)
[2020-01-09] MEDS ORDERED: [UNRECOGNIZED DRUG - OTHER] SQ SCH (21:00)
[2020-01-09] MEDS ORDERED: HEPARIN SODIUM PORCINE SQ SCH (21:00)
[2020-01-09] MEDS: ISOSORBIDE DINITRATE 10 MG TABLET PO SCH (21:00)
[2020-01-09] MEDS: CLOTRIMAZOLE 30 GM CREAM.GM. TP SCH (21:24)
[2020-01-09] MEDS: NYSTATIN 15 GM POWDER TP SCH (21:24)
[2020-01-09] MEDS: BALSAM PERU/CASTOR OIL 60 GM TUBE TP SCH (21:24)
[2020-01-09] MEDS: ZINC OXIDE OINT 30GM TUBE TP SCH (21:24)
[2020-01-09] MEDS: GABAPENTIN 100 MG CAPSULE PO SCH (21:25)
[2020-01-09] MEDS: HEPARIN SODIUM 5000UNIT/ML 1ML VIAL SQ SCH (21:28)
[2020-01-09 23:57] VITALS: BP 114/49
[2020-01-10] VITALS (26 sets, daily range): BP systolic 108–166; BP diastolic 33–82
[2020-01-10] MEDS: ACETAMINOPHEN EXTRA STRENGTH 500 MG TABLET PO SCH ×3 (04:15→18:15)
[2020-01-10] MEDS: SODIUM HYPOCHLORITE 0.25% [HALF STRENGTH] 473 ML TOPICAL SOLN TP SCH (05:43)
[2020-01-10] MEDS: INSULIN HUMULIN R 100 UNIT/ML 3ML SQ SCH ×4 (06:01→20:31)
[2020-01-10] MEDS ORDERED: SEVELAMER CARBONATE 800 MG PO SCH (08:00)
[2020-01-10] MEDS: SEVELAMER HCL 800 MG TABLET PO SCH ×3 (08:00→17:00)
[2020-01-10] MEDS: DARBEPOETIN ALFA IN POLYSORBAT 100 MCG IVP SCH (08:59)
[2020-01-10] MEDS: ISOSORBIDE DINITRATE 10 MG TABLET PO SCH ×2 (08:59→20:52)
[2020-01-10] MEDS: GABAPENTIN 100 MG CAPSULE PO SCH ×2 (08:59→21:18)
[2020-01-10] MEDS: FOLIC ACID/VITAMIN B COMP W-C 1 CAP TAB PO SCH (08:59)
[2020-01-10] MEDS: AMLODIPINE BESYLATE 5 MG TAB PO SCH (08:59)
[2020-01-10] MEDS: FAMOTIDINE 20MG TAB 20 MG TAB PO SCH (08:59)
[2020-01-10] MEDS: POLYETHYLENE GLYCOL 3350 17 GM POWD.PACK PO SCH (08:59)
[2020-01-10] MEDS ORDERED: NON-FORMULARY MEDICATION 1 EACH (Vit B Cmplx 3/FA/Vit C/Biotin (Nephro-Vite Rx Tablet) 1 E PO SCH (09:00)
[2020-01-10] MEDS ORDERED: [UNRECOGNIZED DRUG - OTHER] IV SCH (09:00)
[2020-01-10] MEDS: LISINOPRIL 20 MG TABLET PO SCH (09:00)
[2020-01-10] MEDS: VITAMIN E 400 UNIT CAPSULE PO SCH (09:00)
[2020-01-10] MEDS: HEPARIN SODIUM 5000UNIT/ML 1ML VIAL SQ SCH ×2 (09:00→21:19)
[2020-01-10] MEDS ORDERED: SOD CHLORIDE IV SCH (09:00)
[2020-01-10] MEDS ORDERED: VANCOMYCIN IV SCH (09:00)
[2020-01-10] MEDS ORDERED: VANCOMYCIN 1GM+NS 250ML 250 ML IV ONE (10:39)
[2020-01-10] MEDS: PHARMACY COMMUNICATION MISC SCH ×2 (11:00→18:43)
[2020-01-10] MEDS: VANCOMYCIN 1GM+NS 250ML 250 ML IV SCH (11:05)
[2020-01-10] MEDS: ZINC OXIDE OINT 30GM TUBE TP SCH ×2 (11:05→20:34)
[2020-01-10] MEDS: BALSAM PERU/CASTOR OIL 60 GM TUBE TP SCH ×2 (11:06→20:34)
[2020-01-10] MEDS: CLOTRIMAZOLE 30 GM CREAM.GM. TP SCH ×2 (11:06→21:20)
[2020-01-10] MEDS: NYSTATIN 15 GM POWDER TP SCH ×3 (11:06→20:34)
--- NOTE | 2020-01-10 11:10 | NUR ---
FROM [facility], BACK TO [facility] SPOKE TO DR. BETANCOURT EARLIER TODAY PLAN FOR RETURN TO [facility] WHEN MEDICALLY CLEAR POST TERESA MCINTYRE AWARE
--- NOTE | 2020-01-10 15:33 | NUR ---
RD Notification Pt admitted for Gangrene of Left Stump. Pt NPO at time of screen. Pending AKA procedure as per CM note. When medically feasible, Rec to advanced diet to 75gm CCD as tolerated. Recommend Glucerna TID, Cornell BID for wound healing support. Please notify RD as additional nutrition concerns arise. Thank you. Addendum: 01/10/20 at [address] Amended: Links added.
[2020-01-10] MEDS ORDERED: ROPIVACAINE 0.5% 5MG/ML 30ML IJ ONE ×2 (16:08→16:11)
[2020-01-10] MEDS ORDERED: PROPOFOL 10 MG/ML 20ML VIAL IV ONE (16:08)
[2020-01-10] MEDS ORDERED: LIDOCAINE HCL MPF 1% 5ML VIAL ONE (16:08)
[2020-01-10] MEDS ORDERED: FENTANYL CITRATE PF 50 MCG/1 ML 2ML VIAL ONE (16:09)
[2020-01-10] MEDS ORDERED: ROCURONIUM 10MG/1ML SYR 10 MG/ML ML ONE ×2 (16:09→16:56)
[2020-01-10 16:13] LABS: BASOPHILS % (AUTO) 0.5 % (0.0-5.0); EOSINOPHILS % (AUTO) 0.2 % (0.0-8.0); HEMATOCRIT 33.5 % (42-54); MEAN CORPUSCULAR HEMOGLOBIN 29.5 pg (27.0-33.0); MEAN CORPUSCULAR HGB CONC 32.2 g/dL (32.0-36.0); MEAN CORPUSCULAR VOLUME 91.5 fL (79-99); MONOCYTES % (AUTO) 5.2 % (3.0-13.0); NEUTROPHILS % (AUTO) 88.4 % (40.0-77.0); PLATELET COUNT (AUTO) 355 K/uL (130-400); RED BLOOD CELL COUNT(AUTO) 3.66 MIL/uL (4.50-6.20); RED CELL DISTRIBUTION WIDTH 17.2 % (11.0-15.5); WHITE BLOOD COUNT (AUTO) 24.2 K/uL (4.8-10.8)
[2020-01-10] MEDS ORDERED: CEFAZOLIN SODIUM 1 GM VIAL ONE (17:03)
[2020-01-10] MEDS ORDERED: ONDANSETRON HCL 4 MG/2 ML VIAL ONE (17:37)
[2020-01-10] MEDS ORDERED: NEOSTIGMINE 5MG/5ML SYR IV ONE (17:48)
[2020-01-10] MEDS ORDERED: GLYCOPYRROLATE 1 MG/5 ML SYRINGE ONE (17:48)
[2020-01-10] MEDS ORDERED: SODIUM CHLORIDE 0.9% 1000ML 1,000 ML IV SCH (18:02)
[2020-01-10] MEDS ORDERED: HYDROCODONE/ACETAMINOPHEN 5/325 MG TAB PO PRN (18:15)
[2020-01-10] MEDS ORDERED: FERROUS FUMARATE 324 MG TABLET PO PRN (18:15)
--- NOTE | 2020-01-10 19:10 | NUR ---
POST OP NOTE RECEIVED PATIENT FROM PACU VIA BED,AWAKE, ALERT, OX3, NO SOB , NO C/O PAIN AT THIS TIME, DRESSING LEFT STUMP D/I, DRESSING R FOOT D/I, FAMILY AT BEDSIDE, TEACH PLAN OF CARE AND EXPECTED OUTCOME
[2020-01-11] MEDS: ACETAMINOPHEN EXTRA STRENGTH 500 MG TABLET PO SCH ×3 (02:19→18:08)
[2020-01-11] MEDS: PHARMACY COMMUNICATION MISC SCH ×4 (02:21→19:37)
[2020-01-11 04:00] VITALS: BP 140/53
[2020-01-11 05:43] LABS: BASOPHILS % (AUTO) 0.6 % (0.0-5.0); EOSINOPHILS % (AUTO) 0.5 % (0.0-8.0); HEMATOCRIT 32.2 % (42-54); LYMPHOCYTES % (AUTO) 6.2 % (21.0-51.0); MEAN CORPUSCULAR HEMOGLOBIN 29.4 pg (27.0-33.0); MEAN CORPUSCULAR HGB CONC 31.7 g/dL (32.0-36.0); MEAN CORPUSCULAR VOLUME 92.8 fL (79-99); MONOCYTES % (AUTO) 7.6 % (3.0-13.0); NEUTROPHILS % (AUTO) 83.3 % (40.0-77.0); PLATELET COUNT (AUTO) 335 K/uL (130-400); RED BLOOD CELL COUNT(AUTO) 3.47 MIL/uL (4.50-6.20); WHITE BLOOD COUNT (AUTO) 20.4 K/uL (4.8-10.8)
[2020-01-11 06:07] LABS: ALBUMIN 1.1 g/dL (3.5-5.0); BILIRUBIN,DIRECT 0.2 mg/dL (0.0-0.3); BILIRUBIN,TOTAL 0.6 mg/dL (0.2-1.0); CREATININE 4.1 mg/dL (0.5-1.5); PHOSPHORUS 3.9 mg/dL (2.5-4.9); POTASSIUM 4.3 mmol/L (3.5-5.1); TOTAL PROTEIN, SERUM 6.6 g/dL (6.0-8.3)
[2020-01-11] MEDS: INSULIN HUMULIN R 100 UNIT/ML 3ML SQ SCH ×4 (06:36→20:22)
[2020-01-11 07:30] VITALS: BP 139/43
[2020-01-11] MEDS: SODIUM HYPOCHLORITE 0.25% [HALF STRENGTH] 473 ML TOPICAL SOLN TP SCH (07:36)
[2020-01-11] MEDS: LISINOPRIL 20 MG TABLET PO SCH (09:23)
[2020-01-11] MEDS: FAMOTIDINE 20MG TAB 20 MG TAB PO SCH (09:23)
[2020-01-11] MEDS: FOLIC ACID/VITAMIN B COMP W-C 1 CAP TAB PO SCH (09:23)
[2020-01-11] MEDS: SEVELAMER HCL 800 MG TABLET PO SCH ×3 (09:23→18:06)
[2020-01-11] MEDS: AMLODIPINE BESYLATE 5 MG TAB PO SCH (09:23)
[2020-01-11] MEDS: GABAPENTIN 100 MG CAPSULE PO SCH ×2 (09:23→20:12)
[2020-01-11] MEDS: VITAMIN E 400 UNIT CAPSULE PO SCH (09:23)
[2020-01-11] MEDS: ISOSORBIDE DINITRATE 10 MG TABLET PO SCH ×2 (09:23→20:12)
[2020-01-11] MEDS: POLYETHYLENE GLYCOL 3350 17 GM POWD.PACK PO SCH (09:24)
[2020-01-11] MEDS: BALSAM PERU/CASTOR OIL 60 GM TUBE TP SCH ×2 (09:25→20:25)
[2020-01-11] MEDS: NYSTATIN 15 GM POWDER TP SCH ×3 (09:25→20:24)
[2020-01-11] MEDS: CLOTRIMAZOLE 30 GM CREAM.GM. TP SCH ×2 (09:25→20:24)
[2020-01-11] MEDS: ZINC OXIDE OINT 30GM TUBE TP SCH ×2 (09:26→20:24)
[2020-01-11] MEDS: HEPARIN SODIUM 5000UNIT/ML 1ML VIAL SQ SCH ×2 (09:36→20:17)
[2020-01-11 11:00] VITALS: BP 148/47
[2020-01-11 11:11] LABS: HEPATITIS A ANTIBODY IGM Negative (Negative); HEPATITIS B CORE IGM Negative (Negative); HEPATITIS Bs ANTIGEN SCREEN P Negative (Negative)
[2020-01-11] MEDS: HYDROCODONE/ACETAMINOPHEN 5/325 MG TAB PO PRN (13:11)
[2020-01-11] MEDS: PSYLLIUM SEED 1 EACH PACKET PO SCH (13:19)
[2020-01-11 16:00] VITALS: BP 145/50
--- NOTE | 2020-01-11 16:10 | NUR ---
DISCHARGE PLANNING IN [facility] ADVISED BY RN THAT DR. FREED STATES WOULD NOT NEED ABX X__ WEEKS BECAUSE OF THE SURGERY- COULD PROBABLY GET AT HD; WAS THEN ADVISED THAT DR. BETANCOURT WAS CONCNERED ABOUTTHE OTHER LIMB- GANGRENE TO FOOT- OCNSULT WITH ELIAS, MAY RX ABX OR SURGEYR FOR THAT. SPOKE TO DR. NEIL- WHO IS OK WITH PT [facility] AND WOUND CARE IF DOES NOT NEED EXTENSIVE ABX. WILL FOLLOW UP IN AM WITH JADA RECOMMENDATIONS Addendum: 01/11/20 at 1614 by ORTIZ ARMANDO RN Amended: Links added.
[2020-01-11 20:00] VITALS: BP 123/56
[2020-01-11 23:46] VITALS: BP 106/51
--- NOTE | 2020-01-12 00:28 | NUR ---
ULTRASOUND POLITICAL SCIENCE PROFESSOR AT BEDSIDE TO PERFORM ARTERIAL DOPPLERS RLE
[2020-01-12] MEDS: ACETAMINOPHEN EXTRA STRENGTH 500 MG TABLET PO SCH ×3 (02:49→18:20)
[2020-01-12 04:00] VITALS: BP 104/50
[2020-01-12 05:17] LABS: BASOPHILS % (AUTO) 0.5 % (0.0-5.0); EOSINOPHILS % (AUTO) 0.4 % (0.0-8.0); HEMATOCRIT 29.6 % (42-54); LYMPHOCYTES % (AUTO) 6.4 % (21.0-51.0); MEAN CORPUSCULAR HEMOGLOBIN 29.9 pg (27.0-33.0); MEAN CORPUSCULAR HGB CONC 32.4 g/dL (32.0-36.0); MEAN CORPUSCULAR VOLUME 92.2 fL (79-99); NEUTROPHILS % (AUTO) 84.4 % (40.0-77.0); PLATELET COUNT (AUTO) 330 K/uL (130-400); RED BLOOD CELL COUNT(AUTO) 3.21 MIL/uL (4.50-6.20); WHITE BLOOD COUNT (AUTO) 20.4 K/uL (4.8-10.8)
[2020-01-12 05:19] LABS: CREATININE 5.2 mg/dL (0.5-1.5); POTASSIUM 4.7 mmol/L (3.5-5.1)
[2020-01-12] MEDS: INSULIN HUMULIN R 100 UNIT/ML 3ML SQ SCH ×4 (06:28→21:26)
[2020-01-12 08:00] VITALS: BP 120/32
[2020-01-12] MEDS: AMLODIPINE BESYLATE 5 MG TAB PO SCH (09:00)
[2020-01-12] MEDS: ISOSORBIDE DINITRATE 10 MG TABLET PO SCH ×2 (09:00→21:00)
[2020-01-12] MEDS: SODIUM HYPOCHLORITE 0.25% [HALF STRENGTH] 473 ML TOPICAL SOLN TP SCH (09:00)
[2020-01-12] MEDS: CLOTRIMAZOLE 30 GM CREAM.GM. TP SCH ×2 (09:00→19:53)
[2020-01-12] MEDS: LISINOPRIL 20 MG TABLET PO SCH (09:00)
[2020-01-12] MEDS: FOLIC ACID/VITAMIN B COMP W-C 1 CAP TAB PO SCH (09:33)
[2020-01-12] MEDS: VITAMIN E 400 UNIT CAPSULE PO SCH (09:33)
[2020-01-12] MEDS: FAMOTIDINE 20MG TAB 20 MG TAB PO SCH (09:33)
[2020-01-12] MEDS: SEVELAMER HCL 800 MG TABLET PO SCH ×3 (09:33→17:27)
[2020-01-12] MEDS: POLYETHYLENE GLYCOL 3350 17 GM POWD.PACK PO SCH (09:33)
[2020-01-12] MEDS: GABAPENTIN 100 MG CAPSULE PO SCH ×2 (09:34→19:52)
[2020-01-12] MEDS: NYSTATIN 15 GM POWDER TP SCH ×3 (09:35→19:53)
[2020-01-12] MEDS: BALSAM PERU/CASTOR OIL 60 GM TUBE TP SCH ×2 (09:35→19:53)
[2020-01-12] MEDS: VANCOMYCIN 1GM+NS 250ML 250 ML IV SCH (09:35)
[2020-01-12] MEDS: ZINC OXIDE OINT 30GM TUBE TP SCH ×2 (09:35→19:53)
[2020-01-12] MEDS: HEPARIN SODIUM 5000UNIT/ML 1ML VIAL SQ SCH ×2 (09:38→19:27)
[2020-01-12 11:00] VITALS: BP 126/56
[2020-01-12] MEDS: PSYLLIUM SEED 1 EACH PACKET PO SCH (13:19)
--- NOTE | 2020-01-12 13:23 | NUR ---
DR RAMOS CALLED. HE IS GOING TO SEE THE PATIENT LATER TODAY.,
[2020-01-12 16:00] VITALS: BP 137/46
[2020-01-12] MEDS ORDERED: BISACODYL 5 MG TABLET.DR PO PRN (18:15)
[2020-01-12] MEDS: PHARMACY COMMUNICATION MISC SCH (19:26)
[2020-01-13] MEDS: ACETAMINOPHEN EXTRA STRENGTH 500 MG TABLET PO SCH ×3 (02:15→18:32)
[2020-01-13 04:00] VITALS: BP 142/65
[2020-01-13 05:53] LABS: HEMATOCRIT 29.4 % (42-54); MEAN CORPUSCULAR HGB CONC 32.3 g/dL (32.0-36.0); MEAN CORPUSCULAR VOLUME 92.7 fL (79-99); PLATELET COUNT (AUTO) 327 K/uL (130-400); RED BLOOD CELL COUNT(AUTO) 3.17 MIL/uL (4.50-6.20); RED CELL DISTRIBUTION WIDTH 15.7 % (11.0-15.5); WHITE BLOOD COUNT (AUTO) 18.1 K/uL (4.8-10.8)
[2020-01-13] MEDS: INSULIN HUMULIN R 100 UNIT/ML 3ML SQ SCH ×4 (06:36→20:34)
[2020-01-13 08:00] VITALS: BP 152/47
[2020-01-13] MEDS: SEVELAMER HCL 800 MG TABLET PO SCH ×3 (08:00→16:46)
[2020-01-13] MEDS: VITAMIN E 400 UNIT CAPSULE PO SCH (09:00)
[2020-01-13] MEDS: BALSAM PERU/CASTOR OIL 60 GM TUBE TP SCH ×2 (09:00→20:00)
[2020-01-13] MEDS: ZINC OXIDE OINT 30GM TUBE TP SCH ×2 (09:00→20:00)
[2020-01-13] MEDS: POLYETHYLENE GLYCOL 3350 17 GM POWD.PACK PO SCH (09:00)
[2020-01-13] MEDS: NYSTATIN 15 GM POWDER TP SCH ×3 (09:00→20:36)
[2020-01-13] MEDS: SODIUM HYPOCHLORITE 0.25% [HALF STRENGTH] 473 ML TOPICAL SOLN TP SCH (09:00)
[2020-01-13] MEDS: HEPARIN SODIUM 5000UNIT/ML 1ML VIAL SQ SCH ×2 (09:58→20:33)
[2020-01-13] MEDS: FOLIC ACID/VITAMIN B COMP W-C 1 CAP TAB PO SCH (10:12)
[2020-01-13] MEDS: LISINOPRIL 20 MG TABLET PO SCH (10:13)
[2020-01-13] MEDS: ISOSORBIDE DINITRATE 10 MG TABLET PO SCH ×2 (10:13→20:31)
[2020-01-13] MEDS: GABAPENTIN 100 MG CAPSULE PO SCH ×2 (10:13→20:31)
[2020-01-13] MEDS: AMLODIPINE BESYLATE 5 MG TAB PO SCH (10:13)
[2020-01-13] MEDS: FAMOTIDINE 20MG TAB 20 MG TAB PO SCH (10:13)
[2020-01-13 11:00] VITALS: BP 164/56
[2020-01-13] MEDS: PHARMACY COMMUNICATION MISC SCH ×3 (11:00→20:00)
--- NOTE | 2020-01-13 11:15 | NUR ---
[facility] consult Patient assessed as requested. Patient with perineal rash with small excoriation to scrotum (0.2x0.3 cm); [facility] recommendation submitted. Ulcer to right heel to be addressed by Dr. Youssef.
--- NOTE | 2020-01-13 11:16 | NUR ---
Nutrition Follow-up: Pt. S/P Bernadine MCINTYRE(01/10/2020). Pt. on 75gm CCD Renal Dialysis diet. Pt. reports is eating 50% of his meals. Spoke with pt. regarding nutritional supplementation and pt. agreed to try. Labs reviewed(Alb 1.1, BUN 40, Creat 5.2, GFR 12, BG 150). LBM: 01/13/2020. Recommendations: 1) Continue current diet. 2) Rec. Nepro supp. BID with B'fast and dinner meals. 3) Continue to monitor pt's nutritional status. 4) Consult RD as nutrition concerns arise. Addendum: 01/13/20 at [address] Amended: Links added.
[2020-01-13] MEDS: PSYLLIUM SEED 1 EACH PACKET PO SCH (12:00)
--- NOTE | 2020-01-13 13:10 | NUR ---
MANAGER TRANSFER SPOKE TO PAROLE SUPERVISOR MARIELENA [phone]. WAS TOLD THAT MANAGER TRANSFER HAS LEFT AND THAT HE WOULD NOTIFY CERTIFIED BENCH JEWELER TECHNICIAN MANAGER TRANSFER.
[2020-01-13] MEDS ORDERED: LORAZEPAM 2 MG/ML 1 ML VIAL IVP PRN (13:15)
[2020-01-13] MEDS: CLOTRIMAZOLE 30 GM CREAM.GM. TP SCH ×2 (14:13→20:35)
[2020-01-13 16:00] VITALS: BP 150/55
[2020-01-13] MEDS ORDERED: BISACODYL 10 MG SUPP.RECT RC PRN (18:15)
[2020-01-13 19:51] VITALS: BP 111/53
[2020-01-13 23:08] VITALS: BP 131/48
[2020-01-14] MEDS: ACETAMINOPHEN EXTRA STRENGTH 500 MG TABLET PO SCH ×3 (02:05→18:07)
[2020-01-14 03:42] VITALS: BP 164/57
[2020-01-14 05:32] LABS: HEMATOCRIT 31.3 % (42-54); MEAN CORPUSCULAR HEMOGLOBIN 29.2 pg (27.0-33.0); MEAN CORPUSCULAR HGB CONC 31.6 g/dL (32.0-36.0); MEAN CORPUSCULAR VOLUME 92.3 fL (79-99); PLATELET COUNT (AUTO) 344 K/uL (130-400); RED BLOOD CELL COUNT(AUTO) 3.39 MIL/uL (4.50-6.20); RED CELL DISTRIBUTION WIDTH 15.4 % (11.0-15.5); WHITE BLOOD COUNT (AUTO) 15.3 K/uL (4.8-10.8)
[2020-01-14 05:42] LABS: BAND NEUTROPHILS % (MANUAL) 10 % (0-2); BASOPHILS % (MANUAL) 1 % (0-2); EOSINOPHILS % (MANUAL) 2 % (1-6); LYMPHOCYTES % (MANUAL) 7 % (22-44); MAN.DIFF COMMENT-IMPRESSION MANUAL DIFFERENTIAL; MONOCYTES % (MANUAL) 6 % (2-9); PLATELET MORPHOLOGY COMMENT ADEQUATE; SEGMENTED NEUTROPHILS % 74 % (40-70)
[2020-01-14 05:56] LABS: ASPARTATE AMINOTRANSFERASE 11 U/L (10-37); BILIRUBIN,DIRECT 0.2 mg/dL (0.0-0.3); BILIRUBIN,TOTAL 0.5 mg/dL (0.2-1.0); CHLORIDE 103 mmol/L (101-111); CREATININE 4.7 mg/dL (0.5-1.5); GLOMERULAR FILTR. RATE CALC 13 mL/min (>60); GLUCOSE,RANDOM 214 mg/dL (70-105); POTASSIUM 4.1 mmol/L (3.5-5.1); SODIUM SERUM 138 mmol/L (136-145); TOTAL PROTEIN, SERUM 6.5 g/dL (6.0-8.3); UREA NITROGEN, BLOOD 31 mg/dL (7-18)
[2020-01-14 06:32] LABS: CARBON DIOXIDE 25 mmol/L (21-32)
[2020-01-14 06:36] LABS: ALANINE AMINOTRANSFERASE < 6 U/L (12-78)
[2020-01-14] MEDS: INSULIN HUMULIN R 100 UNIT/ML 3ML SQ SCH ×4 (06:41→20:56)
[2020-01-14] MEDS: SEVELAMER HCL 800 MG TABLET PO SCH ×3 (07:47→17:00)
[2020-01-14 08:00] VITALS: BP 137/47
[2020-01-14] MEDS: VITAMIN E 400 UNIT CAPSULE PO SCH (09:00)
[2020-01-14] MEDS: SODIUM HYPOCHLORITE 0.25% [HALF STRENGTH] 473 ML TOPICAL SOLN TP SCH (09:00)
[2020-01-14] MEDS: POLYETHYLENE GLYCOL 3350 17 GM POWD.PACK PO SCH (09:00)
[2020-01-14] MEDS: HEPARIN SODIUM 5000UNIT/ML 1ML VIAL SQ SCH ×2 (09:26→20:56)
[2020-01-14] MEDS: GABAPENTIN 100 MG CAPSULE PO SCH ×2 (09:27→20:50)
[2020-01-14] MEDS: FAMOTIDINE 20MG TAB 20 MG TAB PO SCH (09:27)
[2020-01-14] MEDS: ISOSORBIDE DINITRATE 10 MG TABLET PO SCH ×2 (09:27→20:53)
[2020-01-14] MEDS: FOLIC ACID/VITAMIN B COMP W-C 1 CAP TAB PO SCH (09:27)
[2020-01-14] MEDS: AMLODIPINE BESYLATE 5 MG TAB PO SCH (09:28)
[2020-01-14] MEDS: LISINOPRIL 20 MG TABLET PO SCH (09:28)
[2020-01-14] MEDS: ZINC OXIDE OINT 30GM TUBE TP SCH ×2 (10:13→21:00)
[2020-01-14] MEDS: NYSTATIN 15 GM POWDER TP SCH ×3 (10:13→21:00)
[2020-01-14] MEDS: CLOTRIMAZOLE 30 GM CREAM.GM. TP SCH ×2 (10:13→21:00)
[2020-01-14] MEDS: BALSAM PERU/CASTOR OIL 60 GM TUBE TP SCH ×2 (10:13→21:00)
[2020-01-14 11:00] VITALS: BP 150/44
[2020-01-14] MEDS: PHARMACY COMMUNICATION MISC SCH ×2 (11:00→19:00)
[2020-01-14] MEDS: PSYLLIUM SEED 1 EACH PACKET PO SCH (12:00)
[2020-01-14 16:00] VITALS: BP 159/55
[2020-01-14 19:11] VITALS: BP 162/43
[2020-01-14 23:36] VITALS: BP 136/46
[2020-01-15] MEDS: ACETAMINOPHEN EXTRA STRENGTH 500 MG TABLET PO SCH ×3 (02:42→17:17)
[2020-01-15] MEDS: PHARMACY COMMUNICATION MISC SCH ×2 (03:00→11:00)
[2020-01-15 03:03] VITALS: BP 131/45
[2020-01-15] MEDS: INSULIN HUMULIN R 100 UNIT/ML 3ML SQ SCH ×4 (07:30→21:00)
[2020-01-15 08:00] VITALS: BP 129/62
[2020-01-15] MEDS: HEPARIN SODIUM 5000UNIT/ML 1ML VIAL SQ SCH ×2 (09:00→21:17)
[2020-01-15] MEDS: ISOSORBIDE DINITRATE 10 MG TABLET PO SCH ×2 (09:00→21:00)
[2020-01-15] MEDS: AMLODIPINE BESYLATE 5 MG TAB PO SCH (09:00)
[2020-01-15] MEDS: LISINOPRIL 20 MG TABLET PO SCH (09:00)
[2020-01-15] MEDS: POLYETHYLENE GLYCOL 3350 17 GM POWD.PACK PO SCH (09:17)
[2020-01-15] MEDS: VITAMIN E 400 UNIT CAPSULE PO SCH (09:18)
[2020-01-15] MEDS: FAMOTIDINE 20MG TAB 20 MG TAB PO SCH (09:18)
[2020-01-15] MEDS: SEVELAMER HCL 800 MG TABLET PO SCH ×3 (09:18→17:17)
[2020-01-15] MEDS: GABAPENTIN 100 MG CAPSULE PO SCH ×2 (09:18→21:16)
[2020-01-15] MEDS: FOLIC ACID/VITAMIN B COMP W-C 1 CAP TAB PO SCH (09:18)
[2020-01-15] MEDS: SODIUM HYPOCHLORITE 0.25% [HALF STRENGTH] 473 ML TOPICAL SOLN TP SCH (09:22)
[2020-01-15] MEDS: NYSTATIN 15 GM POWDER TP SCH ×3 (09:22→21:21)
[2020-01-15] MEDS: ZINC OXIDE OINT 30GM TUBE TP SCH ×2 (09:23→21:21)
[2020-01-15] MEDS: BALSAM PERU/CASTOR OIL 60 GM TUBE TP SCH ×2 (09:23→21:21)
[2020-01-15 12:00] VITALS: BP 140/46
[2020-01-15] MEDS: PSYLLIUM SEED 1 EACH PACKET PO SCH (12:00)
[2020-01-15] MEDS: VANCOMYCIN 1GM+NS 250ML 250 ML IV SCH (12:32)
--- NOTE | 2020-01-15 13:50 | NUR ---
PATIENT COMPLETED HEMODIALYSIS AT 1324 ACCORDING TO Sandie CA EVENTS TRAFFIC CONTROLLER PATIENT HAD 2 LITERS REMOVED IN 3 HOURS, LAST VITAL SIGNS 122/52, 50, 18, 97.4. ASSESSED PATIENT RESTING CALMLY IN BED, LT AV GRAFT WITH POSITIVE THRILL AND BRUIT. PATIENT WITHOUT ANY COMPLAINED OFFERED AT THAT TIME.
--- NOTE | 2020-01-15 14:24 | NUR ---
CHIN PLANNING CALL TO NUMBERS IN SYSTEM [phone] AND [phone] NO ANSWER, THEN RECIEVED CALL BACKS THAT I HAD THE WRONG NUMBERS FOUND OLD FACE SHEET WITH ORIGINAL PHONE NUMBERS ON- [id number] CONTACTED THE DAUGHTERS VIDYA RODARTE AND MANNY RODARTE, [phone] VERIFIEID PHONE NUMBERS AND SENT TO REGISTRATION TO CORRECT REBACCA STATES YES [facility] PLEASE- VERBAL [place] AND WILL SEND REFERRAL
[2020-01-15 16:00] VITALS: BP 154/39
[2020-01-15] MEDS: CLOTRIMAZOLE 30 GM CREAM.GM. TP SCH ×2 (17:21→21:21)
--- NOTE | 2020-01-15 18:40 | NUR ---
DRESSING CHANGE, MD VISIT, AND CLARIFICATION OF WOUND ORDER TO RT HEEL 1814: DRESSING TO INCISIONAL AREA (LT LIMB RESIDUAL) CHANGED, USING STERILE SUPPLIES AND ASEPTIC TECH. REMOVED OLD DRESSING, CLEANSED SITE WITH BETADINE SWABS, COVERED WITH 4X4, AND ABD, WRAPPED WITH KERLIX AND THEN IVIS WRAP, SECURED WITH MICROPORE TAPE. PT TOLERATED PROCEDURE WELL. RT HEEL TX DONE, USING STERILE SUPPLIES AND ASEPTIC TECH. REMOVED OLD DRESSING AND APPLIED 4X4 WITH BETADINE CAST, AND COVERED WITH ANOTHER 2 4X4, WRAPPED WITH KERLIX AND SECURED WITH MICROPORE TAPE, TOLERATED WELL. WAFFLE BOOT PLACED BACK IN USE. SACRAL AREA CLEANSED WITH STERILE 4X4 AND NORMAL SALINE, PATTED DRY AND APPLIED ALLEVYN DRESSING, TOLERATED WELL. 1834:DR. BETANCOURT IN TO SEE PATIENT, INFORMED I HAD JUST PERFORMED INCISION CARE, SITE LOOK CLEAN, FREE OF S/S OF INFECTION, WELL APPROXIMATED, AND NO DRAINAGE. NO NEW ORDERS. 1839: I SPOKE TO DR ELIAS TO MAKE SURE HE WANTED A BETADINE CAST CHANGED DAILY DRESSING TO RT HEEL OR [facility], DR. ELIAS STATED WANTED THE BETADINE CAST DAILY CHANGE.
[2020-01-15 20:00] VITALS: BP 95/52
[2020-01-16] VITALS (7 sets, daily range): BP systolic 109–147; BP diastolic 33–83
[2020-01-16] MEDS: ACETAMINOPHEN EXTRA STRENGTH 500 MG TABLET PO SCH ×3 (00:28→16:52)
[2020-01-16 04:04] LABS: HEMATOCRIT 32.2 % (42-54); MEAN CORPUSCULAR HEMOGLOBIN 29.2 pg (27.0-33.0); MEAN CORPUSCULAR HGB CONC 31.7 g/dL (32.0-36.0); MEAN CORPUSCULAR VOLUME 92.3 fL (79-99); PLATELET COUNT (AUTO) 330 K/uL (130-400); RED BLOOD CELL COUNT(AUTO) 3.49 MIL/uL (4.50-6.20); RED CELL DISTRIBUTION WIDTH 15.1 % (11.0-15.5)
[2020-01-16 04:09] LABS: CREATININE 3.6 mg/dL (0.5-1.5); POTASSIUM 4.3 mmol/L (3.5-5.1)
--- NOTE | 2020-01-16 05:05 | NUR ---
PT REFUSED SUGAR CHECKS
[2020-01-16] MEDS: INSULIN HUMULIN R 100 UNIT/ML 3ML SQ SCH ×4 (06:36→21:00)
[2020-01-16] MEDS: CLOTRIMAZOLE 30 GM CREAM.GM. TP SCH ×2 (09:00→21:00)
[2020-01-16] MEDS: ZINC OXIDE OINT 30GM TUBE TP SCH ×2 (09:00→21:00)
[2020-01-16] MEDS: SODIUM HYPOCHLORITE 0.25% [HALF STRENGTH] 473 ML TOPICAL SOLN TP SCH (09:00)
[2020-01-16] MEDS: BALSAM PERU/CASTOR OIL 60 GM TUBE TP SCH ×2 (09:00→21:00)
[2020-01-16] MEDS: NYSTATIN 15 GM POWDER TP SCH ×3 (09:00→21:00)
[2020-01-16] MEDS: PHARMACY COMMUNICATION MISC SCH (11:00)
[2020-01-16] MEDS: AMLODIPINE BESYLATE 5 MG TAB PO SCH (11:30)
[2020-01-16] MEDS: FAMOTIDINE 20MG TAB 20 MG TAB PO SCH (11:30)
[2020-01-16] MEDS: HYDROCODONE/ACETAMINOPHEN 5/325 MG TAB PO PRN (11:30)
[2020-01-16] MEDS: VITAMIN E 400 UNIT CAPSULE PO SCH (11:30)
[2020-01-16] MEDS: PSYLLIUM SEED 1 EACH PACKET PO SCH (11:30)
[2020-01-16] MEDS: GABAPENTIN 100 MG CAPSULE PO SCH ×2 (11:30→22:37)
[2020-01-16] MEDS: SEVELAMER HCL 800 MG TABLET PO SCH ×3 (11:30→16:52)
[2020-01-16] MEDS: POLYETHYLENE GLYCOL 3350 17 GM POWD.PACK PO SCH (11:31)
[2020-01-16] MEDS: FOLIC ACID/VITAMIN B COMP W-C 1 CAP TAB PO SCH (11:41)
[2020-01-16] MEDS: ISOSORBIDE DINITRATE 10 MG TABLET PO SCH ×2 (11:42→22:37)
[2020-01-16] MEDS: LISINOPRIL 20 MG TABLET PO SCH (11:43)
--- NOTE | 2020-01-16 11:58 | NUR ---
DYSPHAGIA EVAL COMPLETED. +S/S OF ASPIRATION WITH THIN LIQUIDS AND SOLIDS. RECOMMEND PUREED, NECTAR-THICK LIQUIDS; PILLS CRUSHED WITH APPLESAUCE. RECOMMENDATIONS: 1. DYSPHAGIA THERAPY 3-5X WEEK TO INCREASE ORAL MOTOR STRENGTH AND PHARYNGEAL SWALLOW: LTG#1: Pt WILL TOLERATE LEAST RESTRICTIVE DIET TO MEET NUTRITION/HYDRATION WITH NO S/S OF ASPIRATION. LTG#2: SKILLED EDUCATION Pt/FAMILY/STAFF STG#1: Pt WILL PARTICIPATE IN LARYNGEAL ELEVATION/EXCURSION EXERCISES WITH 80% ACCURACY. STG#2: Pt WILL PARTICIPATE IN TONGUE BASE RETRACTION EXERCISES WITH 80% ACCURACY. STG#3: Pt WILL PARTICIPATE IN ORAL MOTOR EXERCISES WITH 80% ACCURACY. STG#4: Pt WILL TOLERATE PUREED, NECTAR-THICK LIQUIDS WITH NO OVERT S/S OF ASPIRATION. STG#5: PT WILL BE ABLE TO PARTICIPATE IN MBSS AFTER 2-4 WEEKS OF THERAPEUTIC INTERVENTION. STG#6: SKILLED EDUCATION Pt/FAMILY/STAFF. STG#7: PT WILL TOLERATE THERAPEUTIC TRIALS OF ADVANCED TEXTURES OF MECHANICAL SOFT AND THIN LIQUIDS WITH NO OVERT S/S OF ASPIRATION. NO FAMILY PRESENT AT THE TIME OF THE EVALUATION. Addendum: 01/16/20 at 1205 by DINH GU [facility] Amended: Links added.
[2020-01-16] MEDS: HEPARIN SODIUM 5000UNIT/ML 1ML VIAL SQ SCH ×2 (12:06→21:00)
--- NOTE | 2020-01-16 17:37 | NUR ---
DISCHARGE PLANNING TO [facility] AND BACK TO [facility] DIALYSIS REFERRAL MADE TO [facility]- [place]/CONSENT OBTAINED VIA TELEPHONE FROM DAUGHTER MANNY, REFERRAL SENT, SEEN BY REP AND ACCEPTED REFERRAL BACK TO [facility] HD - SENT RECORDS. PENDING HEP B TOTAL CORE ANTIBODY. SPOKE TO SUSHIL AT [facility] AND BETINA AT [facility] ADMISSION AND NO BUDGE- THEY WANT THE ANTIBODY BEFORE PAYTIENT CAN BE RE [facility]ITIATED [facility] DRAWN THERE- PENIDNG CALL BACK. LABS ENTERED Addendum: 01/16/20 at 1741 by ORTIZ ARMANDO RN CM Amended: Links added.
[2020-01-16 19:17] LABS: % IRON SATURATION 46.8 % (30-44)
[2020-01-16] MEDS ORDERED: NALOXONE HCL 0.4 MG/1 ML ML ONE (19:34)
[2020-01-16] MEDS ORDERED: NALOXONE HCL 0.4 MG/1 ML ML IVP SCH (19:45)
[2020-01-17] MEDS: ACETAMINOPHEN EXTRA STRENGTH 500 MG TABLET PO SCH ×3 (02:15→18:15)
[2020-01-17 03:00] VITALS: BP 146/31
[2020-01-17 05:10] LABS: HEMATOCRIT 31.4 % (42-54); MEAN CORPUSCULAR HEMOGLOBIN 29.2 pg (27.0-33.0); MEAN CORPUSCULAR HGB CONC 31.5 g/dL (32.0-36.0); MEAN CORPUSCULAR VOLUME 92.6 fL (79-99); PLATELET COUNT (AUTO) 336 K/uL (130-400); RED BLOOD CELL COUNT(AUTO) 3.39 MIL/uL (4.50-6.20); RED CELL DISTRIBUTION WIDTH 15.1 % (11.0-15.5); WHITE BLOOD COUNT (AUTO) 13.9 K/uL (4.8-10.8)
[2020-01-17 05:24] LABS: CREATININE 4.6 mg/dL (0.5-1.5); PHOSPHORUS 3.8 mg/dL (2.5-4.9); POTASSIUM 4.6 mmol/L (3.5-5.1)
[2020-01-17] MEDS: INSULIN HUMULIN R 100 UNIT/ML 3ML SQ SCH ×4 (06:11→20:58)
[2020-01-17 06:34] LABS: BAND NEUTROPHILS % (MANUAL) 2 % (0-2); LYMPHOCYTES % (MANUAL) 7 % (22-44); MONOCYTES % (MANUAL) 5 % (2-9); REACTIVE LYMPHOCYTES 2 % (0-0); SEGMENTED NEUTROPHILS % 84 % (40-70)
[2020-01-17 06:37] LABS: MAN.DIFF COMMENT-IMPRESSION MANUAL DIFFERENTIAL
[2020-01-17 06:38] LABS: PLATELET MORPHOLOGY COMMENT ADEQUATE
[2020-01-17] MEDS: SEVELAMER HCL 800 MG TABLET PO SCH ×3 (08:00→17:24)
[2020-01-17 08:08] VITALS: BP 186/79
[2020-01-17] MEDS: LISINOPRIL 20 MG TABLET PO SCH (09:00)
[2020-01-17] MEDS: AMLODIPINE BESYLATE 5 MG TAB PO SCH (09:00)
[2020-01-17] MEDS: DARBEPOETIN ALFA IN POLYSORBAT 100 MCG IVP SCH (09:00)
[2020-01-17] MEDS: ISOSORBIDE DINITRATE 10 MG TABLET PO SCH ×2 (09:00→20:58)
[2020-01-17] MEDS: HEPARIN SODIUM 5000UNIT/ML 1ML VIAL SQ SCH ×2 (09:00→19:50)
[2020-01-17] MEDS: POLYETHYLENE GLYCOL 3350 17 GM POWD.PACK PO SCH (10:21)
[2020-01-17] MEDS: VITAMIN E 400 UNIT CAPSULE PO SCH (10:21)
[2020-01-17] MEDS: GABAPENTIN 100 MG CAPSULE PO SCH ×2 (10:21→20:57)
[2020-01-17] MEDS: SODIUM HYPOCHLORITE 0.25% [HALF STRENGTH] 473 ML TOPICAL SOLN TP SCH (10:21)
[2020-01-17] MEDS: FAMOTIDINE 20MG TAB 20 MG TAB PO SCH (10:21)
[2020-01-17] MEDS: FOLIC ACID/VITAMIN B COMP W-C 1 CAP TAB PO SCH (10:21)
--- NOTE | 2020-01-17 10:32 | NUR ---
RD FOLLOW UP Notification for Malnutrition, Albumin 1.0, Multiple wounds, received. Pt with renal failure on Dialysis, Creatinine levels remain high. Pt receiving Nepro BID, drinking 100% as per RN. Further protein supplementation contraindicated secondary to elevated Cr. and renal failure. RD recommends Cornell BID, 500mg Vitamin C QD, and 220mg ZnSO4 QD for wound healing support. Continue Nepro BID. TYRON to continue to monitor. Addendum: 01/17/20 at [address] Amended: Links added.
[2020-01-17] MEDS: NYSTATIN 15 GM POWDER TP SCH ×3 (10:43→21:00)
[2020-01-17] MEDS: CLOTRIMAZOLE 30 GM CREAM.GM. TP SCH ×2 (10:43→20:58)
[2020-01-17] MEDS: ZINC OXIDE OINT 30GM TUBE TP SCH ×2 (10:43→20:59)
[2020-01-17] MEDS: BALSAM PERU/CASTOR OIL 60 GM TUBE TP SCH ×2 (10:53→20:58)
[2020-01-17 11:10] VITALS: BP 101/39
[2020-01-17] MEDS: PSYLLIUM SEED 1 EACH PACKET PO SCH (12:14)
--- NOTE | 2020-01-17 14:00 | NUR ---
N no nystatin powder available. Notified pharmacy for new bottle to be delivered.
--- NOTE | 2020-01-17 14:02 | NUR ---
FOLLOW UP. Pt PARTICIPATED IN LUNCH. Pt WITH NO OVERT S/S OF ASPIRATION WITH CURRENT DIET DOWNGRADE TO PUREED, NECTAR-THICK LIQUIDS. RECOMMEND CONTINUED P.O. WITH DIET MODIFICATION. BOWLING FLOOR DESK CLERK WILL CONTINUE TO FOLLOW Pt AT THIS TIME. Addendum: 01/17/20 at 1403 by DINH GU, [facility] Amended: Links added.
--- NOTE | 2020-01-17 15:00 | NUR ---
Per dinkey engine firer, patient refusing lab draws at this time. Explained to patient importance of lab draws to check Vanco levels. Continues to refuse at this time. Will attempt at a later time.
[2020-01-17 16:26] VITALS: BP 152/67
--- NOTE | 2020-01-17 17:21 | NUR ---
Notified pharmacy of Vanco trough 19. Pharmacist to review Vanco order and will notify when able to administer.
--- NOTE | 2020-01-17 18:06 | NUR ---
Called pharmacy regarding vancomycin dosage and whether or not to proceed with current dose at 1 g or if dosage to be recalibrated. Per pharmacist Samantha, may continue with 1 g Vancomycin.
[2020-01-17] MEDS: VANCOMYCIN 1GM+NS 250ML 250 ML IV SCH (18:25)
[2020-01-17 19:00] VITALS: BP 144/52
[2020-01-17 23:00] VITALS: BP 147/39
[2020-01-18] MEDS: ACETAMINOPHEN EXTRA STRENGTH 500 MG TABLET PO SCH ×3 (02:25→17:52)
[2020-01-18 03:00] VITALS: BP 115/43
[2020-01-18 04:14] LABS: BASOPHILS % (AUTO) 0.4 % (0.0-5.0); EOSINOPHILS % (AUTO) 1.1 % (0.0-8.0); HEMATOCRIT 27.2 % (42-54); LYMPHOCYTES % (AUTO) 9.9 % (21.0-51.0); MEAN CORPUSCULAR HEMOGLOBIN 29.5 pg (27.0-33.0); MEAN CORPUSCULAR HGB CONC 31.6 g/dL (32.0-36.0); MEAN CORPUSCULAR VOLUME 93.2 fL (79-99); NEUTROPHILS % (AUTO) 79.6 % (40.0-77.0); PLATELET COUNT (AUTO) 305 K/uL (130-400); RED BLOOD CELL COUNT(AUTO) 2.92 MIL/uL (4.50-6.20); RED CELL DISTRIBUTION WIDTH 15.1 % (11.0-15.5); WHITE BLOOD COUNT (AUTO) 13.1 K/uL (4.8-10.8)
[2020-01-18 04:30] LABS: CREATININE 3.1 mg/dL (0.5-1.5); POTASSIUM 3.6 mmol/L (3.5-5.1)
--- NOTE | 2020-01-18 05:01 | NUR ---
WOUND CARE COMPLETED TO LEFT STUMP. CLEANSED SITE WITH BETADINE. 4X4 GAUZE PADS AND ABD APPLIED. WRAPPED WITH KERLIX AND SECURED WITH IVIS BANDAGE. PT ELFEGO WOUND CARE WELL. BED LEFT IN LOWEST POSITION, RAILS UP X4. CALL LIGHT WITHIN REACH. WILL CONTINUE TO MONITOR AND PROCEED WITH PLAN OF CARE.
[2020-01-18] MEDS: INSULIN HUMULIN R 100 UNIT/ML 3ML SQ SCH ×4 (06:53→21:00)
[2020-01-18] MEDS: SEVELAMER HCL 800 MG TABLET PO SCH ×3 (08:00→17:50)
[2020-01-18 08:10] LABS: HEPATITIS Bs ANTIGEN SCREEN P Negative (Negative)
[2020-01-18 08:45] VITALS: BP 155/55
[2020-01-18] MEDS: FAMOTIDINE 20MG TAB 20 MG TAB PO SCH (09:00)
[2020-01-18] MEDS: SODIUM HYPOCHLORITE 0.25% [HALF STRENGTH] 473 ML TOPICAL SOLN TP SCH (09:00)
[2020-01-18] MEDS: POLYETHYLENE GLYCOL 3350 17 GM POWD.PACK PO SCH ×2 (09:00→11:52)
[2020-01-18] MEDS: LISINOPRIL 20 MG TABLET PO SCH (09:00)
[2020-01-18] MEDS: AMLODIPINE BESYLATE 5 MG TAB PO SCH (09:00)
[2020-01-18] MEDS: ISOSORBIDE DINITRATE 10 MG TABLET PO SCH ×2 (09:00→21:00)
[2020-01-18] MEDS: NYSTATIN 15 GM POWDER TP SCH ×3 (09:00→21:00)
[2020-01-18 11:08] VITALS: BP 133/72
[2020-01-18] MEDS: GABAPENTIN 100 MG CAPSULE PO SCH ×2 (11:47→22:43)
[2020-01-18] MEDS: FOLIC ACID/VITAMIN B COMP W-C 1 CAP TAB PO SCH (11:48)
[2020-01-18] MEDS: VITAMIN E 400 UNIT CAPSULE PO SCH (11:48)
[2020-01-18] MEDS: ZINC OXIDE OINT 30GM TUBE TP SCH ×2 (11:50→22:43)
[2020-01-18] MEDS: CLOTRIMAZOLE 30 GM CREAM.GM. TP SCH ×2 (11:50→22:44)
[2020-01-18] MEDS: BALSAM PERU/CASTOR OIL 60 GM TUBE TP SCH ×2 (11:51→22:44)
[2020-01-18] MEDS: PSYLLIUM SEED 1 EACH PACKET PO SCH (11:51)
--- NOTE | 2020-01-18 12:29 | NUR ---
TREATMENT COMPLETED. S: Pt COOPERATIVE IN BED AT THE TIME OF THE SESSION WITH IMPROVED ALERTNESS. DAUGHTER AT BEDSIDE DURING THE SESSION. PER NURSE, DAUGHTER PROVIDING Pt WITH THIN LIQUIDS. CLINICAL RESEARCH NURSE EDUCATED DAUGHTER ON RISKS AND CONSEQUENCES OF ASPIRATION. SHE VERBALIZED UNDERSTANDING AND COMPLIANCE. O: Pt CURRENTLY TARGETING SWALLOWING GOALS, RESULTS ARE FOLLOWS: Pt PARTICIPATED IN THERAPEUTIC TRIALS OF NECTAR-THICK LIQUIDS X5 WITH NO OVERT S/S OF ASPIRATION. Pt PARTICIPATED IN THERAPEUTIC TRIALS OF ADVANCED TEXTURE OF THIN LIQUIDS WITH COUGH RESPONSE. A: CLINICAL RESEARCH NURSE EDUCATED Pt AND FAMILY ON RISKS AND CONSEQUENCES OF ASPIRATION. CLINICAL RESEARCH NURSE PREPARED NECTAR-THICK LIQUIDS AND LEFT THEM AT BEDSIDE. FAMILY REPORTS Pt ALWAYS COUGHS WHEN HE EATS. CLINICAL RESEARCH NURSE EDUCATED FAMILY ON S/S OF ASPIRATION INCLUDING COUGHING AND THROAT CLEAR. P: RECOMMEND CONTINUED SKILLED SPEECH THERAPY TARGETING SWALLOWING. RECOMMEND CONTINUED PUREED, NECTAR-THICK LIQUID DIET. CLINICAL RESEARCH NURSE COORDINATED CARE WITH NURSE SAEED Cabrera. CLINICAL RESEARCH NURSE WILL CONTINUE TO FOLLOW Pt. Addendum: 01/18/20 at 1236 by BRAYDEN GAN Amended: Links added.
[2020-01-18] MEDS: HEPARIN SODIUM 5000UNIT/ML 1ML VIAL SQ SCH ×2 (12:39→21:00)
[2020-01-18 16:36] VITALS: BP 138/57
--- NOTE | 2020-01-18 19:20 | NUR ---
NON COMPLAINT PATIENT HAD A TACO HE WAS TRYING TO EAT. HE SAID HIS DAUGHTER BROUGHT IT FOR HIM TO EAT. INFORMED HIM THAT HE COULD NOT EAT THAT PER THE SECURITIES RESEARCH ANALYST RECOMMENDATIONS. PATIENT VERBALIZED UNDERSTANDING. WILL CONTINUE TO MONITOR PATIENT.
[2020-01-18 20:00] VITALS: BP 140/33
[2020-01-19] VITALS: BP 126/37
[2020-01-19] MEDS: ACETAMINOPHEN EXTRA STRENGTH 500 MG TABLET PO SCH ×3 (02:44→17:26)
[2020-01-19 04:00] VITALS: BP 145/43
[2020-01-19] MEDS: INSULIN HUMULIN R 100 UNIT/ML 3ML SQ SCH ×4 (05:39→20:12)
[2020-01-19 08:00] VITALS: BP 161/39
[2020-01-19] MEDS: SEVELAMER HCL 800 MG TABLET PO SCH ×3 (08:00→17:26)
[2020-01-19] MEDS: LISINOPRIL 20 MG TABLET PO SCH (09:00)
[2020-01-19] MEDS: FAMOTIDINE 20MG TAB 20 MG TAB PO SCH (09:00)
[2020-01-19] MEDS: ZINC OXIDE OINT 30GM TUBE TP SCH ×2 (09:00→20:08)
[2020-01-19] MEDS: HEPARIN SODIUM 5000UNIT/ML 1ML VIAL SQ SCH ×2 (09:00→20:05)
[2020-01-19] MEDS: SODIUM HYPOCHLORITE 0.25% [HALF STRENGTH] 473 ML TOPICAL SOLN TP SCH (09:00)
[2020-01-19] MEDS: VITAMIN E 400 UNIT CAPSULE PO SCH (09:00)
[2020-01-19] MEDS: FOLIC ACID/VITAMIN B COMP W-C 1 CAP TAB PO SCH (09:00)
[2020-01-19] MEDS: BALSAM PERU/CASTOR OIL 60 GM TUBE TP SCH ×2 (09:00→20:09)
[2020-01-19] MEDS: NYSTATIN 15 GM POWDER TP SCH ×3 (09:00→23:19)
[2020-01-19] MEDS: AMLODIPINE BESYLATE 5 MG TAB PO SCH (09:00)
[2020-01-19] MEDS: GABAPENTIN 100 MG CAPSULE PO SCH ×2 (09:00→20:01)
[2020-01-19] MEDS: ISOSORBIDE DINITRATE 10 MG TABLET PO SCH ×3 (09:00→19:36)
[2020-01-19] MEDS: CLOTRIMAZOLE 30 GM CREAM.GM. TP SCH ×2 (09:00→20:07)
--- NOTE | 2020-01-19 10:35 | NUR ---
Nutrition Follow-up: Pt. receiving dialysis and was asleep during RD visit. Pt. S/P Dysphagia evaluation on 01/16/2020- TREASURY REPRESENTATIVE rec. Pureed, [place] Thick texture. Pt. on Renal Dialysis Pureed diet, [place] Thick Liquids, Nepro/Cornell BID. Pt. with 0-25% p.o. intake as noted in EMR. Labs reviewed(Alb 1.0, BG 161, Creat 3.1, GFR 21). SR-16, right foot ulcer. LBM: 01/17/2020. Recommendations: 1) Rec. appetite stimulant. 2) Continue to monitor pt's nutritional status. 3) Consult RD as nutrition concerns arise. Addendum: 01/19/20 at [address] Amended: Links added.
--- NOTE | 2020-01-19 10:52 | NUR ---
HOLD TREATMENT Pt CURRENTLY ON DIALYSIS. HOLD TREATMENT FOR TODAY. POLY PACKER AND HEAT SEALER WILL CONTINUE TO FOLLOW Pt. POLY PACKER AND HEAT SEALER COORDINATED WITH NURSE CABALLERO. Addendum: 01/19/20 at 1053 by DINH GU, [facility] Amended: Links added.
[2020-01-19 11:00] VITALS: BP 156/60
[2020-01-19] MEDS: PSYLLIUM SEED 1 EACH PACKET PO SCH (12:00)
[2020-01-19 16:00] VITALS: BP 128/34
[2020-01-19] MEDS ORDERED: VANCOMYCIN 750MG + NS 250 ML IV SCH ×2 (16:00)
[2020-01-19] MEDS ORDERED: COMPOUND IV REFRIGERATED 1 EACH IVSOLN MISC PRN (16:30)
--- NOTE | 2020-01-19 16:30 | NUR ---
DC PLANNING COMPLETED! FOR [facility]. PATIENT ACCEPTED. [facility] FAXED. EMS FORM IN CHART HD ACCEPTANCE AT [facility] FOR Wednesday01/23/2020 NEEDS HD ON WEDNESDAY FOR 2 HRS, WAS SUPPOSED TO HAVE HD WEDNESDAY, NOT TODAY, ORDER IN CHART FROM [facility]. ADVISED SRIRAM ASHLEY AND SOFI HARRISON OF SAME
[2020-01-19 19:30] VITALS: BP 139/50
[2020-01-20 00:05] VITALS: BP 143/50
[2020-01-20] MEDS: ACETAMINOPHEN EXTRA STRENGTH 500 MG TABLET PO SCH ×3 (02:07→18:48)
[2020-01-20 04:00] VITALS: BP 138/51
[2020-01-20] MEDS: INSULIN HUMULIN R 100 UNIT/ML 3ML SQ SCH ×4 (06:10→22:23)
[2020-01-20 08:00] VITALS: BP 126/76
[2020-01-20] MEDS: SEVELAMER HCL 800 MG TABLET PO SCH ×3 (08:00→16:43)
--- NOTE | 2020-01-20 08:00 | NUR ---
HOLDING PT'S RENAGEL BECAUSE HE IS NOT EATING AT THIS TIME, STATING HE DOESNT LIKE OUR FOOD AND IS GOING TO WAIT TILL HIS FAMILY BRINGS HIM A TACO. ALSO HOLDING OTHER PO MEDS TILL AFTER HIS DIALYSIS SESSION.
[2020-01-20] MEDS: FAMOTIDINE 20MG TAB 20 MG TAB PO SCH (09:00)
--- NOTE | 2020-01-20 10:03 | NUR ---
TREATMENT COMPLETED. S: Pt HAD JUST FINISHED WITH PHYSICAL THERAPY UPON ARRIVAL. Pt LETHARGIC BUT WILLING TO COOPERATE WITH THERAPEUTIC TRIALS. HE COMPLAINED ABOUT FOOD TEXTURE AND FLAVOR AND ASKED TO BE UPGRADED TO REGULAR SOLID DIET. O: Pt CURRENTLY TARGETING SWALLOWING GOALS, RESULTS ARE FOLLOWS: Pt PARTICIPATED IN EXERCISES TARGETING ORAL MOTOR MUSCLES, LARYNGEAL ELEVATION/EXCURSION, AND TONGUE BASE RETRACTION WITH MOD DIFFICULTIES GIVEN MAX VISUAL AND VERBAL CUES. Pt PARTICIPATED IN THERAPEUTIC TRIALS OF NECTAR-THICK LIQUIDS X2 WITH NO OVERT S/S OF ASPIRATION. THROAT CLEAR NOTED AFTER SWALLOWS. Pt. PARTICIPATED IN THERAPEUTIC TRIALS OF PUDDING X2 WITH NO OVERT S/S OF ASPIRATION. Pt. REFUSED TO CONTINUE WITH ANY OTHER P.O. TRIALS AT THIS TIME. A: CELL COVERER EDUCATED Pt ON RISKS AND CONSEQUENCES OF ASPIRATION AND IMPORTANCE OF ORAL MOTOR EXERCISES. P: RECOMMEND THE CONTINUATION OF SKILLED SPEECH THERAPY TARGETING SWALLOWING. RECOMMEND CONTINUED PUREED, NECTAR-THICK LIQUID DIET. CELL COVERER COORDINATED CARE WITH NURSE GLOVER. CELL COVERER WILL CONTINUE TO FOLLOW UP. Addendum: 01/20/[address] [facility] Amended: Links added.
[2020-01-20] MEDS: HEPARIN SODIUM 5000UNIT/ML 1ML VIAL SQ SCH ×2 (10:08→22:23)
[2020-01-20] MEDS: ZINC OXIDE OINT 30GM TUBE TP SCH ×2 (10:17→22:25)
[2020-01-20] MEDS: NYSTATIN 15 GM POWDER TP SCH ×3 (10:17→22:26)
[2020-01-20] MEDS: CLOTRIMAZOLE 30 GM CREAM.GM. TP SCH ×2 (10:17→22:25)
[2020-01-20] MEDS: BALSAM PERU/CASTOR OIL 60 GM TUBE TP SCH ×2 (10:18→22:25)
--- NOTE | 2020-01-20 11:44 | NUR ---
cm note call made to osman mejia at [facility]. and states that pt is accepted. updated primary nurse. alex.
[2020-01-20 12:00] VITALS: BP 148/70
[2020-01-20] MEDS: PSYLLIUM SEED 1 EACH PACKET PO SCH (12:00)
[2020-01-20] MEDS: FOLIC ACID/VITAMIN B COMP W-C 1 CAP TAB PO SCH (15:58)
[2020-01-20] MEDS: VITAMIN E 400 UNIT CAPSULE PO SCH (15:58)
[2020-01-20] MEDS: POLYETHYLENE GLYCOL 3350 17 GM POWD.PACK PO SCH (15:58)
[2020-01-20] MEDS: ISOSORBIDE DINITRATE 10 MG TABLET PO SCH ×2 (15:59→22:24)
[2020-01-20] MEDS: GABAPENTIN 100 MG CAPSULE PO SCH ×2 (15:59→22:23)
[2020-01-20 16:00] VITALS: BP 184/47
[2020-01-20] MEDS: LISINOPRIL 20 MG TABLET PO SCH (16:00)
[2020-01-20] MEDS: AMLODIPINE BESYLATE 5 MG TAB PO SCH (16:00)
[2020-01-20 20:16] VITALS: BP 189/78
[2020-01-21] VITALS (8 sets, daily range): BP systolic 135–184; BP diastolic 31–93
[2020-01-21] MEDS: ACETAMINOPHEN EXTRA STRENGTH 500 MG TABLET PO SCH ×3 (02:56→19:00)
[2020-01-21] MEDS: INSULIN HUMULIN R 100 UNIT/ML 3ML SQ SCH ×4 (06:16→20:53)
[2020-01-21] MEDS: LISINOPRIL 20 MG TABLET PO SCH (09:00)
[2020-01-21] MEDS: FAMOTIDINE 20MG TAB 20 MG TAB PO SCH (09:00)
[2020-01-21] MEDS: ISOSORBIDE DINITRATE 10 MG TABLET PO SCH ×2 (09:00→20:52)
[2020-01-21] MEDS: AMLODIPINE BESYLATE 5 MG TAB PO SCH (09:00)
[2020-01-21] MEDS: HEPARIN SODIUM 5000UNIT/ML 1ML VIAL SQ SCH ×2 (09:45→20:54)
[2020-01-21] MEDS: SEVELAMER HCL 800 MG TABLET PO SCH ×3 (09:47→17:18)
[2020-01-21] MEDS: FOLIC ACID/VITAMIN B COMP W-C 1 CAP TAB PO SCH (09:48)
[2020-01-21] MEDS: GABAPENTIN 100 MG CAPSULE PO SCH ×2 (09:48→20:51)
[2020-01-21] MEDS: VITAMIN E 400 UNIT CAPSULE PO SCH (09:48)
[2020-01-21] MEDS: POLYETHYLENE GLYCOL 3350 17 GM POWD.PACK PO SCH (09:48)
[2020-01-21] MEDS: ZINC OXIDE OINT 30GM TUBE TP SCH ×2 (10:11→20:55)
[2020-01-21] MEDS: BALSAM PERU/CASTOR OIL 60 GM TUBE TP SCH ×2 (10:11→20:55)
[2020-01-21] MEDS: CLOTRIMAZOLE 30 GM CREAM.GM. TP SCH ×2 (10:11→20:56)
[2020-01-21] MEDS: NYSTATIN 15 GM POWDER TP SCH ×3 (10:11→20:55)
[2020-01-21] MEDS: PSYLLIUM SEED 1 EACH PACKET PO SCH (12:51)
--- NOTE | 2020-01-21 13:45 | NUR ---
cm note spoke to dr kloton shah regarding dc planning, and states pt not ready for transfer to snf today, poss dc tomorrow.
[2020-01-22 00:20] VITALS: BP 119/36
[2020-01-22] MEDS: ACETAMINOPHEN EXTRA STRENGTH 500 MG TABLET PO SCH ×2 (03:03→09:21)
[2020-01-22 04:20] VITALS: BP 156/43
[2020-01-22] MEDS: INSULIN HUMULIN R 100 UNIT/ML 3ML SQ SCH ×3 (05:43→16:30)
[2020-01-22 05:51] LABS: HEMATOCRIT 27.2 % (42-54); MEAN CORPUSCULAR HEMOGLOBIN 29.7 pg (27.0-33.0); MEAN CORPUSCULAR HGB CONC 31.6 g/dL (32.0-36.0); MEAN CORPUSCULAR VOLUME 93.8 fL (79-99); PLATELET COUNT (AUTO) 317 K/uL (130-400); RED CELL DISTRIBUTION WIDTH 15.1 % (11.0-15.5); WHITE BLOOD COUNT (AUTO) 9.3 K/uL (4.8-10.8)
[2020-01-22 06:12] LABS: BAND NEUTROPHILS % (MANUAL) 1 % (0-2); BASOPHILS % (MANUAL) 2 % (0-2); EOSINOPHILS % (MANUAL) 3 % (1-6); LYMPHOCYTES % (MANUAL) 7 % (22-44); MAN.DIFF COMMENT-IMPRESSION MANUAL DIFFERENTIAL; MONOCYTES % (MANUAL) 8 % (2-9); PLATELET MORPHOLOGY COMMENT ADEQUATE; REACTIVE LYMPHOCYTES 4 % (0-0); SEGMENTED NEUTROPHILS % 75 % (40-70)
[2020-01-22 06:21] LABS: CREATININE 4.2 mg/dL (0.5-1.5); PHOSPHORUS 3.2 mg/dL (2.5-4.9); POTASSIUM 4.5 mmol/L (3.5-5.1)
[2020-01-22 08:20] VITALS: BP 141/71
--- NOTE | 2020-01-22 08:55 | NUR ---
PT NOTE: PATIENT PERFORMED STATIC SITTING AT [id number] MOD ASSISTX2 WITH FAIR STATIC TRUNK CONTROL NOTED. PATIENT PRESENTS WITH IMPROVED TOLERANCE FOR SITTING AT EOB TODAY VS LAST WEEK. Addendum: 01/22/20 at 1016 by CARMELITA GREEN PT Amended: Links added.
[2020-01-22] MEDS: FAMOTIDINE 20MG TAB 20 MG TAB PO SCH (09:00)
[2020-01-22] MEDS: CLOTRIMAZOLE 30 GM CREAM.GM. TP SCH (09:00)
[2020-01-22] MEDS: POLYETHYLENE GLYCOL 3350 17 GM POWD.PACK PO SCH (09:20)
[2020-01-22] MEDS: LISINOPRIL 20 MG TABLET PO SCH (09:21)
[2020-01-22] MEDS: FOLIC ACID/VITAMIN B COMP W-C 1 CAP TAB PO SCH (09:22)
[2020-01-22] MEDS: VITAMIN E 400 UNIT CAPSULE PO SCH (09:22)
[2020-01-22] MEDS: ISOSORBIDE DINITRATE 10 MG TABLET PO SCH (09:22)
[2020-01-22] MEDS: GABAPENTIN 100 MG CAPSULE PO SCH (09:22)
[2020-01-22] MEDS: SEVELAMER HCL 800 MG TABLET PO SCH ×3 (09:22→17:00)
[2020-01-22] MEDS: AMLODIPINE BESYLATE 5 MG TAB PO SCH (09:22)
[2020-01-22] MEDS: HEPARIN SODIUM 5000UNIT/ML 1ML VIAL SQ SCH (09:38)
[2020-01-22] MEDS: ZINC OXIDE OINT 30GM TUBE TP SCH (09:39)
[2020-01-22] MEDS: NYSTATIN 15 GM POWDER TP SCH ×2 (09:39→14:00)
[2020-01-22] MEDS: BALSAM PERU/CASTOR OIL 60 GM TUBE TP SCH (09:40)
--- NOTE | 2020-01-22 10:33 | NUR ---
RD FOLLOW UP S/P [facility]. POSSIBLE D/C TO GROUP HOME. PT IS ON DIALYSIS AND IS TOLERATING WELL. DIET: PUREED/ RENAL DIALYSIS, NEPRO AND GODWIN BID. PO INTAKE IS GOOD (75%). LABS AND MEDS REVIEWED. RD RECOMMENDS TO CONTINUE CURRENT DIET CONTINUE ORAL SUPPLEMENTATION TO AID WOUND HEALING MONITOR PO INTAKE AND TOLERANCE Addendum: 01/22/20 at [address] Amended: Links added.
[2020-01-22 11:37] VITALS: BP 132/44
[2020-01-22] MEDS: PSYLLIUM SEED 1 EACH PACKET PO SCH (12:00)
--- NOTE | 2020-01-22 14:51 | NUR ---
CALL TO DR. NEIL RE: PT'S HEART RATE CALL TO DR. NEIL. WANTED TO CONFIRM --CARDIOLOGY CONSULT ? REVIEWED PT'S HX OF BRADYCARDIA IN 40S- THIS MONTH, NOVEMBER, LAST YEAR AND 2018. REVIEWED HISTORY OF FIRST AND 2ND DEGREE HEART BLOCK WITH DR. NEIL- ADVISED DR. NEIL THAT DR. RAMOS SAW HIM ON THIS HOSPITALIZATION BUT ONLY FOR THE PERIPHERALS NOT FOR RATE- DR. ZABALA SAW HIM FOR RATE IN [address] MCDONALD SAW HIM IN IN CLNIC IN 2019- ALL FOR BRADYCARDIA IN 40'S . DR. NEIL STATES JUST HAVE PT FOLLOW UP WITH SAFETY PERSON AN OUT PATIENT FOR THE BRADYCARDIA. PT CURRENTLY SEEMS TO BE ASYMPTOMATIC WITH HR 1ST DEGREE IN 40'S. ADVISED PRIMARY RN ROLLY.
--- NOTE | 2020-01-22 15:30 | NUR ---
DR JOLYNN NEIL MADE ROUNDS AND IS DISCHARGING PATIENT TO [facility] IN [place]. ORDERED FOR PICC LINE TO BE DISCONTINUED. MEDICATION RECONCILIATION FILLED OUT BY DR NEIL. INFORMED MD OF PATIENTS BRADYCARDIA, DR NEIL SAID FOR PATIENT TO FOLLOW UP WITH DR RAMOS. PATIENT HAS A HISTORY OF ASYMPTOMATIC BRADYCARDIA.
--- NOTE | 2020-01-22 16:00 | NUR ---
REPORT [facility] REPORT GIVEN TO KARMEN BHATIA. PATIENT BEING SENT TO [facility]. PICC LINE DISCONTINUED PER DR NEIL. DRESSINGS CHANGED TO BILATERAL LOWER EXTREMITIES PER MD ORDERS. TELEPAK DISCONTINUED. FOLLOW UP APPOINTMENTS MADE.
--- NOTE | 2020-01-22 16:15 | NUR ---
[facility] CALLED. PATIENT BEING SENT TO [facility] VIA EMS.
== END 2020-01-22 18:02 | DRG 474 ==
LOC: 4AH 15:59 → 4BH 01-15 05:47
PROVIDERS: ADMIT Internal Medicine Nephrology; ATTEND Internal Medicine Nephrology
PROC: 0Y6D0Z3 Detachment at Left Upper Leg, Low, Open Approach (ICD-10-PCS; principal; 2020-01-09)
DX: T87.44 Infection of amputation stump, left lower extremity (principal); N18.6 End stage renal disease; A41.02 Sepsis due to Methicillin resistant Staphylococcus aureus; I12.0 Hypertensive chronic kidney disease with stage 5 chronic kidney disease or end stage renal disease; Z89.512 Acquired absence of left leg below knee; Z87.39 Personal history of other diseases of the musculoskeletal system and connective tissue; E11.22 Type 2 diabetes mellitus with diabetic chronic kidney disease; E11.21 Type 2 diabetes mellitus with diabetic nephropathy; Y79.3 Surgical instruments, materials and orthopedic devices (including sutures) associated with adverse incidents
CPT/HCPCS: 36415; 71045; 73718; 80048; 80074; 80076; 80202; 82728; 82948; 83540; 83550; 84100; 84132; 85025; 85027; 85610; 85730; 86701; 86704; 86706; 86850; 86900; 86901; 86922; 87340; 87390; 87520; 88307; 90935; 92526; 92610; 93926; 97039; G0378; J0690; J1644; J1815; J2060; J2310; J2405; J2704; J2710; J2795; J3010; J3370; J3490; J7030; P9016